=== PATIENT | male | born 1940 | race Caucasian/White ===

== ENCOUNTER 2017-07-23 04:36 | Observation (INO) | payer MEDICARE, SELFPAY ==
[2017-07-23] VITALS (13 sets, daily range): BP systolic 123–139; BP diastolic 66–94; PULSE 67–90; RESP 12–20; TEMP 36.8–37.1; O2SAT 91–97; BMI 29.8; BMI 30.9
--- NOTE | 2017-07-23 04:44 | HMH.EDGENADL ---
ED Disposition Clinical Impression: Angina pectoris Disposition: Xfer Short-Term Hosp Condition on Discharge: Good Referrals: Rober Horn [Primary Care Provider] - Forms: Transfer Record - ED - Critical Care Critical Care Time: No Attestation: On 07/23/17, the high probability of a clinically significant, sudden or life threatening deterioration of the following system(s) required my full and direct attention, intervention and personal management. The time I documented below is in addition to time spent performing reported procedures but includes the following listed in this critical care notation. Medical Decision Making - Noah Inquiry Pt receiving controlled substance: No Vital Signs: 07/23/17 04:37 07/23/17 05:06 07/23/17 05:30 Temperature 98.7 F Temperature Source Oral Pulse Rate [Right Radial] 79 71 75 Respiratory Rate 20 16 Blood Pressure [Right Arm] 129/91 126/71 139/86 Blood Pressure Mean [Right Arm] 103 89 103 Blood Pressure Source [Right Arm] Automatic Cuff Blood Pressure Position [Right Arm] Sitting Sitting 02 Sat by Pulse Oximetry 97 94 L 97 Oxygen Delivery Method 07/23/17 07:00 07/23/17 07:30 07/23/17 08:00 Temperature 98.2 F Temperature Source Oral Pulse Rate [Right Radial] 75 75 77 Respiratory Rate 18 Blood Pressure [Right Arm] 130/85 123/72 123/72 Blood Pressure Mean [Right Arm] 100 89 89 Blood Pressure Source [Right Arm] Automatic Cuff Automatic Cuff Automatic Cuff Blood Pressure Position [Right Arm] Supine 02 Sat by Pulse Oximetry 92 L 95 91 L Oxygen Delivery Method Room Air Room Air - Lab Data Lab Results 07/23/17 04:45: WBC 9.2, RBC 5.02, Hgb 15.6, Hct 47.2, MCV 93.9, MCH 31.2, MCHC 33.2, RDW 12.7, Plt Count 250, MPV 7.6, Neut % (Auto) 59.9, Lymph % (Auto) 27.4, [place] % (Auto) 10.4 H, Eos % (Auto) 1.7, Baso % (Auto) 0.7, Neut # (Auto) 5.5, Lymph # (Auto) 2.5, [place] # (Auto) 1.0, Eos # (Auto) 0.2, Baso # (Auto) 0.1 07/23/17 04:45: Sodium 141, Potassium 4.1, Chloride 102, Carbon Dioxide 30, Anion Gap 13.1, BUN 26 H, Creatinine 1.68 H, Estimated Creat Clear 53, Estimated GFR 40 L, Est GFR ( Amer) 48 L, Glucose 126 H, Calcium 8.7, Total Bilirubin 0.3, AST 36, ALT 36, Alkaline Phosphatase 64, Total Creatine Kinase 460 H, CK-MB (CK-2) 5.9 H, CK-MB (CK-2) Rel Index 1.3, Troponin I < 0.02, Total Protein 7.0, Albumin 3.7, Globulin 3.3 H, Albumin/Globulin Ratio 1.1 Result diagrams: 07/23/17 04:45 07/23/17 04:45 Orders (Tests/Meds): ED MEDICATIONS Discontinued Medications Generic Name Dose Route Start Last Admin Trade Name Freq PRN Reason Stop Dose Admin Aspirin 324 mg 07/23/17 06:56 07/23/17 06:57 Aspirin 81mg Chewable Tablet PO 07/23/17 06:57 324 mg ONCE ONE Administration Nitroglycerin 0.4 mg 07/23/17 05:28 07/23/17 05:31 Nitrostat 0.4mg Sl Tablet SL 07/23/17 05:29 0.4 mg ONCE ONE Administration ORDERS Category Date Time Status Chest XR 2 view (NOT portable) [XR chest 2V] Stat Exams 07/23/17 04:45 Taken Troponin I Q3H Lab 07/23/17 07:45 Received Troponin I Q3H Lab 07/23/17 10:30 Ordered Troponin I Q3H Lab 07/23/17 13:30 Ordered - Radiology Data #1 Image(s): Chest Image Reviewed: Yes I reviewed the patient's radiology image Preliminary Findings: Normal/NAD - ECG Data Tracing #1 EKG interpreted by Faisal Nieves MD: Rhythm: Atrial fibrillation Rate: 72 [place]: normal Ectopy: Unifocal PVCs versus aberrantly conducted beats Conduction: Incomplete right bundle branch block ST Segment Changes: Nonspecific T Wave Changes: Nonspecific Q Waves: none No evidence of acute ischemia or injury Prior electrocardiagrams reviewed. No change from prior tracings. Baseline artifact present, but I consider the EKG adequate for accurate interpretation. Medical Decision Narrative: The patient refused aspirin upon arrival because he is on Eliquis. 6:07 AM: Discussed disposition. I recom
--- NOTE | 2017-07-23 04:45 | XR_ITS ---
XR chest 2V COMPARISON: Portable upright chest 08/04/2016 HISTORY: Chest pain TECHNIQUE: PA and lateral chest FINDINGS: The lung cantrell are fairly well-expanded and appear clear of infiltrate. There is borderline cardio megaly without failure. There is no pleural fluid. The bony thorax appears normal. IMPRESSION: Borderline cardio megaly, no acute chest pathology noted
--- NOTE | 2017-07-23 04:47 | ED_ITS ---
ED Disposition Clinical Impression: Angina pectoris Disposition: Xfer Short-Term Hosp Condition on Discharge: Good Referrals: Rober Horn [Primary Care Provider] - Forms: Transfer Record - ED - Critical Care Critical Care Time: No Attestation: On 07/23/17, the high probability of a clinically significant, sudden or life threatening deterioration of the following system(s) required my full and direct attention, intervention and personal management. The time I documented below is in addition to time spent performing reported procedures but includes the following listed in this critical care notation. Medical Decision Making - Noah Inquiry Pt receiving controlled substance: No Vital Signs: 07/23/17 04:37 07/23/17 05:06 07/23/17 05:30 Temperature 98.7 F Temperature Source Oral Pulse Rate [Right Radial] 79 71 75 Respiratory Rate 20 16 Blood Pressure [Right Arm] 129/91 126/71 139/86 Blood Pressure Mean [Right Arm] 103 89 103 Blood Pressure Source [Right Arm] Automatic Cuff Blood Pressure Position [Right Arm] Sitting Sitting 02 Sat by Pulse Oximetry 97 94 L 97 Oxygen Delivery Method 07/23/17 07:00 07/23/17 07:30 07/23/17 08:00 Temperature 98.2 F Temperature Source Oral Pulse Rate [Right Radial] 75 75 77 Respiratory Rate 18 Blood Pressure [Right Arm] 130/85 123/72 123/72 Blood Pressure Mean [Right Arm] 100 89 89 Blood Pressure Source [Right Arm] Automatic Cuff Automatic Cuff Automatic Cuff Blood Pressure Position [Right Arm] Supine 02 Sat by Pulse Oximetry 92 L 95 91 L Oxygen Delivery Method Room Air Room Air - Lab Data Lab Results 07/23/17 04:45: WBC 9.2, RBC 5.02, Hgb 15.6, Hct 47.2, MCV 93.9, MCH 31.2, MCHC 33.2, RDW 12.7, Plt Count 250, MPV 7.6, Neut % (Auto) 59.9, Lymph % (Auto) 27.4 , [place] % (Auto) 10.4 H, Eos % (Auto) 1.7, Baso % (Auto) 0.7, Neut # (Auto) 5.5, Lymph # (Auto) 2.5, [place] # (Auto) 1.0, Eos # (Auto) 0.2, Baso # (Auto) 0.1 07/23/17 04:45: Sodium 141, Potassium 4.1, Chloride 102, Carbon Dioxide 30, Anion Gap 13.1, BUN 26 H, Creatinine 1.68 H, Estimated Creat Clear 53, Estimated GFR 40 L, Est GFR ( Amer) 48 L, Glucose 126 H, Calcium 8.7, Total Bilirubin 0.3, AST 36, ALT 36, Alkaline Phosphatase 64, Total Creatine Kinase 460 H, CK-MB (CK-2) 5.9 H, CK-MB (CK-2) Rel Index 1.3, Troponin I < 0.02 , Total Protein 7.0, Albumin 3.7, Globulin 3.3 H, Albumin/Globulin Ratio 1.1 Result diagrams: 07/23/17 04:45 07/23/17 04:45 Orders (Tests/Meds): ED MEDICATIONS Discontinued Medications Generic Name Dose Route Start Last Admin Trade Name Freq PRN Reason Stop Dose Admin Aspirin 324 mg 07/23/17 06:56 07/23/17 06:57 Aspirin 81mg Chewable Tablet PO 07/23/17 06:57 324 mg ONCE ONE Administration Nitroglycerin 0.4 mg 07/23/17 05:28 07/23/17 05:31 Nitrostat 0.4mg Sl Tablet SL 07/23/17 05:29 0.4 mg ONCE ONE Administration ORDERS Category Date Time Status Chest XR 2 view (NOT portable) [XR chest 2V] Stat Exams 07/23/17 04:45 Taken Troponin I Q3H Lab 07/23/17 07:45 Received Troponin I Q3H Lab 07/23/17 10:30 Ordered Troponin I Q3H Lab 07/23/17 13:30 Ordered - Radiology Data #1 Image(s): Chest Image Reviewed:
[2017-07-23 05:06] LABS: Basophils # 0.1 K/mm3 (0-0.2); Basophils % 0.7 % (0.1-2.0); Eosinophils # 0.2 K/mm3 (0.0-0.4); Eosinophils % 1.7 % (0.1-12.0); Hematocrit 47.2 % (42.0-52.0); Hemoglobin 15.6 g/dL (14.1-18.0); Lymphocytes # 2.5 K/mm3 (0.7-4.5); Lymphocytes % 27.4 K/mm3 (10-50); Mean Corpuscular HGB Conc 33.2 g/dL (31.8-35.4); Mean Corpuscular Hemoglobin 31.2 pg (27.0-31.2); Mean Corpuscular Volume 93.9 fl (80-94); Mean Platelet Volume 7.6 fl (7.4-10.4); Monocytes % 10.4 % (1.7-9.3); Neutrophils # 5.5 K/mm3 (1.8-7.8); Neutrophils % 59.9 % (37.0-80.0); Platelet Count 250 K/mm3 (142-424); Red Blood Count 5.02 M/mm3 (4.60-6.20); Red Cell Distribution Width 12.7 % (11.5-17.5); White Blood Count 9.2 K/mm3 (4.8-10.8)
[2017-07-23 05:25] LABS: Alanine Aminotransferase 36 U/L (12-78); Albumin Level 3.7 gm/dL (3.4-5.0); Albumin/Globulin Ratio 1.1 (1.1-1.8); Alkaline Phosphatase 64 U/L (46-116); Anion Gap 13.1 mEq/L (5-15); Aspartate Amino Transferase 36 U/L (15-37); Bilirubin,Total 0.3 mg/dL (0.2-1.0); Blood Urea Nitrogen 26 mg/dL (7-18); CKMB Relative Index 1.3 U/L (0-4.0); Calcium 8.7 mg/dL (8.5-10.1); Carbon Dioxide 30 mmol/L (21.0-32.0); Chloride 102 mmol/L (98-107); Creatine Kinase 460 U/L (39-308); Creatine Kinase MB 5.9 mg/ml (0.0-3.6); Creatinine Clearance Estimated 53 mL/min (0-300); Creatinine,Serum 1.68 mg/dL (0.70-1.30); Estimated Glomerular Filt Rate 40 ml/min (>60); GFR (African American) 48 ML/MIN (>60); Globulin 3.3 gm/dl (1.3-3.2); Glucose 126 mg/dL (74-106); Potassium 4.1 mmoL/L (3.5-5.1); Sodium 141 mmol/L (136-145); Troponin I < 0.02 ng/ml (0.00-0.06)
--- NOTE | 2017-07-23 05:29 | PC.NURSE ---
PT IS NOW C/O CHEST PAIN, 09/15. PT STATES THAT HE IS UNCOMFORTABLE. DR. ROSALES NOTIFIED AND NEW ORDERS RECEIVED. NITRO SL GIVEN. WILL MONITOR FOR IMPROVMENT.
--- NOTE | 2017-07-23 06:28 | PC.NURSE ---
DR SHAKIR GORDILLO HOSPITALIST FOR POSSIBLE CARDIAC TRANSFER TO [facility]. AWAITING RETURN CALL.
--- NOTE | 2017-07-23 06:54 | PC.NURSE ---
DR. BECKER ACCEPTING AT [facility] FOR CARDIAC EVAL AND ANGINA. PT 3RD IN LINE FOR BED PLACEMENT. AWAITING CALL FROM [facility] FOR BED PLACEMENT. PT AND FAMILY UPDATED.
[2017-07-23 08:11] LABS: Troponin I < 0.02 ng/ml (0.00-0.06)
--- NOTE | 2017-07-23 09:00 | PC.NURSE ---
Mimi from [facility] called stating they do not have a bed for pt at this time, stated there are 3 admissions in from of pt at this time. Stated she will call back with updates.
[2017-07-23 11:19] LABS: Troponin I < 0.02 ng/ml (0.00-0.06)
--- NOTE | 2017-07-23 12:49 | PC.NURSE ---
Contacted [facility] bed placement, spoke with Gilma who stated pt is on the waiting list with 1 other pt is in front of him. Stated they still have discharges that are still present in the facility that they are waiting to free up beds. Stated will contact us back to update on status.
[2017-07-23 14:28] LABS: Troponin I < 0.02 ng/ml (0.00-0.06)
--- NOTE | 2017-07-23 15:06 | PC.NURSE ---
attempted to contacted bed placement at [facility], no answer. Will continue to attempt to try to contact them
--- NOTE | 2017-07-23 15:24 | PC.NURSE ---
Spoke with Snehal at [facility] about an estimated time for pt to get a bed, she stated that she was unable to give me a time and that he was still on their list but didn't know when they would have a bed open for him.
--- NOTE | 2017-07-23 17:52 | PC.NURSE ---
INFORMED PATIENT THAT [facility] STILL IS AWAITING BED PLACEMENT.
--- NOTE | 2017-07-23 18:12 | PC.NURSE ---
IN TO SPEAK WITH PATIENT.
[2017-07-24] VITALS (11 sets, daily range): BP systolic 109–143; BP diastolic 51–92; PULSE 66–80; RESP 12–24; TEMP 36.3–36.7; O2SAT 89–99
--- NOTE | 2017-07-24 01:51 | PC.NURSE ---
PT IS A&OX3. HE DENIED CP UPON ADMISSION, BUT LATER REPORTED THAT HE FELT CHEST PAIN WHEN HE ROLLED OVER ONTO HIS LEFT SIDE. AFIB WITH OCCASSIONAL PVCS ON TELEMETRY. DENIES SOA WHILE AT REST. HE IS [place].
--- NOTE | 2017-07-24 08:25 | HMH.HP ---
*Admission Date: 07/23/17 *Chief complaint: recurring chest pain *History of present illness: 77-year-old male with history of coronary artery disease and atrial fibrillation presented to the emergency department early in the morning on July 23 with recurring episodes of left-sided chest pain described as a cramp across my chest . Initial onset of pain had been earlier that morning when the patient was in bed and turned and rolled over on his left side. He had immediate onset of chest pain. However altering his position afterward did not reduce any of the chest pain and he continued to have episodes lasting between 10 and 20 minutes until he presented to the emergency department. In the emergency department he continued to have episodes of chest discomfort and was given nitroglycerin. While chest pain decreased patient did not believe it was due to the nitroglycerin. 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 He did rule out for [place]. As the evening progressed patient's mind changed and he was admitted to our facility. Dr. Barrera was consulted. The patient tells me overnight he once again had an episode of chest pain when he turned to roll over onto his left side. Patient has a history of atrial fibrillation and has failed 2 cardioversions. He also had a cardiac catheterization approximately 5 years ago and was told he had evidence of a blocked coronary artery with good collateral circulation. Patient also reports a history of vasovagal syncope that occurs especially after procedures. He does state with his initial episode of chest pain on the morning of July 23 he became diaphoretic and nauseous. [facility] History Medical History: Reports:: Atrial Fibrillation, Coronary Artery Disease, Hyperlipidemia, Hypertension Denies:: Cancer, Diabetes Mellitus Type 1, Diabetes Mellitus Type 2, MRSA Other Medical History: Reports: Cataracts Other Surgeries: Yes: Cardiac Catheterization Amputation: No Fractures: No - *Social History Educational Level: Attended College Smoking Status: Never smoker Alcohol Intake: never Occupational Status: retired - Psychiatric History Expresses thoughts of harming self/others: None Suicide Plan Description: No Plan *Family Hx:: Cancer, Hypertension Review of Systems - Review of Systems Review of systems:: pertinent systems reviewed and negative unless documented below Meds Home Medications Medication Instructions Recorded Confirmed Type Apixaban [Eliquis] 5 mg PO BID 07/23/17 07/23/17 History Cetirizine HCl [Zyrtec] 10 mg PO DAILY 07/23/17 07/23/17 History Fluticasone Propionate 9.9 ml NS DAILY 07/23/17 07/23/17 History Lisinopril [Lisinopril 20mg Tab] 20 mg PO DAILY 07/23/17 07/23/17 History Simvastatin [Simvastatin] 40 mg PO DAILY 07/23/17 07/23/17 History Triamcinolone Acetonide [Kenalog 0 gm TOPICAL DAILY 07/23/17 07/23/17 History 0.1% cream 30gm tube] hydroCHLOROthiazide [HCTZ 12.5mg 12.5 mg PO DAILY 07/23/17 07/23/17 History cap] Allergies Allergy/AdvReac Type Severity Reaction Status Date / Time No Known Allergies Allergy Unverified 04/26/17 15:05 Exam Vital signs and Labs for Last 24 Hours: Temp Pulse Resp BP Pulse Ox 97.9 F 75 18 130/73 96 07/24/17 07:54 07/24/17 07:54 07/24/17 07:54 07/24/17 07:54 07/24/17 07:54 Laboratory Results - last 24 hr 07/23/17 07:45: Troponin I < 0.02 07/23/17 10:48: Troponin I < 0.02 07/23/17 13:53: Troponin I < 0.02 I & O for Last 24 hours: Intake & Output 07/21/17 07/22/17 07/23/17 07/24/17 11:59 11:59 11:59 11:59 Intake Total 340 / 340 Balance 340 / 340 Narrative: Patient is awake and alert this morning and in no distress. Pupils are reactive to light. Oropharynx is moist. Neck is without carotid bruits or jugular venous distention. Heart is irregularly irregular. Khadijah
--- NOTE | 2017-07-24 08:28 | P.HP_ITS ---
*Admission Date: 07/23/17 *Chief complaint: recurring chest pain *History of present illness: 77-year-old male with history of coronary artery disease and atrial fibrillation presented to the emergency department early in the morning on July 23 with recurring episodes of left-sided chest pain described as a cramp across my chest . Initial onset of pain had been earlier that morning when the patient was in bed and turned and rolled over on his left side. He had immediate onset of chest pain. However altering his position afterward did not reduce any of the chest pain and he continued to have episodes lasting between 10 and 20 minutes until he presented to the emergency department. In the emergency department he continued to have episodes of chest discomfort and was given nitroglycerin. While chest pain decreased patient did not believe it was due to the nitroglycerin. 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 He did rule out for [place]. As the evening progressed patient's mind changed and he was admitted to our facility. Dr. Barrera was consulted. The patient tells me overnight he once again had an episode of chest pain when he turned to roll over onto his left side. Patient has a history of atrial fibrillation and has failed 2 cardioversions. He also had a cardiac catheterization approximately 5 years ago and was told he had evidence of a blocked coronary artery with good collateral circulation. Patient also reports a history of vasovagal syncope that occurs especially after procedures. He does state with his initial episode of chest pain on the morning of July 23 he became diaphoretic and nauseous. [facility] History Medical History: Reports:: Atrial Fibrillation, Coronary Artery Disease, Hyperlipidemia, Hypertension Denies:: Cancer, Diabetes Mellitus Type 1, Diabetes Mellitus Type 2, MRSA Other Medical History: Reports: Cataracts Other Surgeries: Yes: Cardiac Catheterization Amputation: No Fractures: No - *Social History Educational Level: Attended College Smoking Status: Never smoker Alcohol Intake: never Occupational Status: retired - Psychiatric History Expresses thoughts of harming self/others: None Suicide Plan Description: No Plan *Family Hx:: Cancer, Hypertension Review of Systems - Review of Systems Review of systems:: pertinent systems reviewed and negative unless documented below Meds Home Medications Medication Instructions Recorded Confirmed Type Apixaban [Eliquis] 5 mg PO BID 07/23/17 07/23/17 History Cetirizine HCl [Zyrtec] 10 mg PO DAILY 07/23/17 07/23/17 History Fluticasone Propionate 9.9 ml NS DAILY 07/23/17 07/23/17 History Lisinopril [Lisinopril 20mg Tab] 20 mg PO DAILY 07/23/17 07/23/17 History Simvastatin [Simvastatin] 40 mg PO DAILY 07/23/17 07/23/17 History Triamcinolone Acetonide [Kenalog 0 gm TOPICAL DAILY 07/23/17 07/23/17 History 0.1% cream 30gm tube] hydroCHLOROthiazide [HCTZ 12.5mg 12.5 mg PO DAILY 07/23/17 07/23/17 History cap] Allergies Allergy/AdvReac Type Severity Reaction Status Date / Time No Known Allergies Allergy Unverified 04/26/17 15:05 Exam Vital signs and Labs for Last 24 Hours: Temp Pulse Resp BP Pulse Ox 97.9 F 75 18 130/73 96 07/24/17 07:54 07/24/17 07:54 07/24/17 07:54 07/24/17 07:54 07/24/17 07:54 Laboratory Results - last 24 hr 07/23/17 07:45: Troponin I <
--- NOTE | 2017-07-24 10:02 | P.CONPHA_ITS ---
[facility] Pharmacy VTE Monitoring - Patient Demographics Admission date: 07/24/17 Report Date: 07/24/17 Time: 10:02 Allergies/Adverse Reactions: Patient Allergies No Known Allergies Allergy (Unverified 04/26/17 15:05) Height: 1.83 m Weight: 103.419 kg Patient Problems: Current Active Problems Angina pectoris (Acute) Atrial fibrillation, chronic (Acute) Coronary artery disease (Acute) - VTE Risk Labs: VTE Related Lab Results Hgb 15.6 g/dL (14.1-18.0) 07/23/17 04:45 Hct 47.2 % (42.0-52.0) 07/23/17 04:45 Plt Count 250 K/mm3 (142-424) 07/23/17 04:45 BUN 26 mg/dL (7-18) H 07/23/17 04:45 Creatinine 1.68 mg/dL (0.70-1.30) H 07/23/17 04:45 Estimated Creat Clear 53 mL/min (0-300) 07/23/17 04:45 Was VTE Risk Assessment Performed: Yes VTE Score: 3 VTE Risk Level: Low Risk - VTE Diagnosis Confirmed Comment: LUBNA RAMOS
--- NOTE | 2017-07-24 11:06 | PC.NURSE ---
Addendum entered by Melissa Rod RN 07/24/17 11:09: CALLED DR. HAQUE. Original Note: called md at this time to verify that he was coming in today to see patient. md stated he did plan on it and to go ahead and give patient a lunch tray and he would be down some time after lunch.
--- NOTE | 2017-07-24 18:01 | PC.NURSE ---
DR HAQUE ROUNDED ON PATIENT AT 1435 FOR ORDERED CONSULT. AFTER SPEAKING WITH PATIENT MD ORDERED FOR AN ECHO ORDER AND A CATH ORDER ON THE PATIENT FOR IN THE MORNING AND THAT HE PLANNED ON CATHING HIM SOON POSSIBLE IN THE MORNING. PLACED ORDERS IN COMPUTER FOR ECHO LIMITED THAT WAS IN ERROR, SO STOPPED THIS AND CHANGED IT TO AN ECHO DOPPLER COMPLETE.
--- NOTE | 2017-07-24 18:16 | PC.NURSE ---
PATIENT HAS HAD A GOOD DAY THIS SHIFT. REMAINS ON HEART MONITOR AND IS NOTED TO BE IN AFIB MAJORITY OF THE TIME WITH FREQUENT PVCS. SOME STRIPS NOTED WERE AFLUTTER. HE HAS HAD NO COMPLAINTS. PATIENT SIGNED CONSENT FOR HEART CATH THIS SHIFT. HIS VSS WILL CONTINUE TO MONITOR.
[2017-07-25] VITALS (21 sets, daily range): BP systolic 113–146; BP diastolic 58–89; PULSE 54–75; RESP 16–20; TEMP 36.6–37; O2SAT 90–100
--- NOTE | 2017-07-25 | IR_ITS ---
CARDIAC CATHETERIZATION DATE OF CATHETERIZATION:07/25/2017 9:13 AM PROCEDURES: 1. Left heart catheterization 2. Left ventriculogram 3. Selective coronary angiogram 4. Drug-eluting stent deployment to the mid left anterior descending artery INDICATION FOR TEST: 1. Unstable angina 2. Coronary artery disease 3. Chronically occluded right coronary artery being fed by the left anterior descending artery via left to right collaterals Informed consent was obtained prior to the procedure. COMPLICATIONS: None ESTIMATED BLOOD LOSS: Less than 10 ml. TECHNIQUE: One percent lidocaine used to anesthetize the right anterior aspect of the wrist. The right radial artery was accessed via the Seldinger technique. A 6 Danish sheath was placed in the right radial artery. 2.5 mg of verapamil, 800 mcg of nitroglycerin was administered via the sheath. Patient had a 360 degree corkscrew brachiocephalic artery therefore the radial access was abandoned and 1% lidocaine used to anesthetize the right groin. Right femoral artery was accessed via the Seldinger technique and a 4 Danish sheath was placed in the right femoral artery. A JL 4 JR4 catheter were used for the diagnostic procedure. At the end of the diagnostic procedure 10,000 units of heparin was administered intravenously producing an ACT of 288 seconds. An additional 2000 units of heparin was administered intravenously. The 4 Danish sheath was exchanged for a 6 Danish sheath and an EBU 0.75 guide catheter was used intubate the left main artery. A BMW wire was placed distally into the LAD and a 3 mm x 26 mm resolute Erik stent was deployed at 18 manju reducing the focal severe stenosis to 0%. KARL-3 flow was present before and after the procedure. After achieving excellent angiographic results the apparatus was removed the groin is reprepped closure changed sheath was removed good hemostasis was achieved using Perclose device patient transferred to the postop holding area in stable condition. The radial sheath was also removed after the femoral arterial sheath was removed ANGIOGRAPHIC RESULTS: 1. The left main artery normal 2. The left anterior descending artery has proximal 10-20% stenoses with a focal concentric 80-90% mid vessel stenosis. The LAD supplies collaterals to the distal right coronary artery 3. The circumflex artery is a nondominant yet still large vessel with mild 10% luminal irregularities. A portion of this vessel also collateralizes the distal right coronary artery 4. The right coronary artery is a dominant vessel and occluded at mid vessel. The distal segment fills primarily via left to right collaterals 5. The RASMUSSEN ventriculogram reveals normal 65% 6. The left ventricular end-diastolic pressure 10 mmHg IMPRESSION: 1. Severe 2 vessel coronary artery disease as described above 2. Severe disease in the LAD which collateralizes the distal dominant right coronary artery with successful stenting of the mid LAD severe disease reduced to 0% with 1 drug-eluting stent 3. Normal ejection fraction 4. Normal left ventricular end-diastolic pressure PLAN: 1. Brilinta 90 mg twice a day plus aspirin 81 mg a day for at least 6 months 2. Patient should be started and continued on Eliquis for his atrial fibrillation. 3. LDL less than 55 4. High intensity statin therapy 5. Cardiac rehabilitation 6. Avoidance of any tobacco products
--- NOTE | 2017-07-25 02:52 | PC.NURSE ---
PT IS A&OX3. HE IS CURRENTLY NPO FOR HEART CATH IN . DENIES SOA. DENIES PAIN.
[2017-07-25 05:24] LABS: Basophils % 0.5 % (0.1-2.0); Eosinophils # 0.3 K/mm3 (0.0-0.4); Eosinophils % 4.1 % (0.1-12.0); Hematocrit 47.4 % (42.0-52.0); Hemoglobin 15.4 g/dL (14.1-18.0); Lymphocytes % 27.4 K/mm3 (10-50); Mean Corpuscular HGB Conc 32.6 g/dL (31.8-35.4); Mean Corpuscular Hemoglobin 30.6 pg (27.0-31.2); Mean Platelet Volume 7.6 fl (7.4-10.4); Monocytes # 0.6 K/mm3 (0.1-1.0); Monocytes % 8.2 % (1.7-9.3); Neutrophils # 4.5 K/mm3 (1.8-7.8); Neutrophils % 59.7 % (37.0-80.0); Platelet Count 255 K/mm3 (142-424); Red Blood Count 5.04 M/mm3 (4.60-6.20); Red Cell Distribution Width 12.5 % (11.5-17.5); White Blood Count 7.5 K/mm3 (4.8-10.8)
[2017-07-25 05:43] LABS: Anion Gap 7.9 mEq/L (5-15); Blood Urea Nitrogen 19 mg/dL (7-18); Carbon Dioxide 33 mmol/L (21.0-32.0); Chloride 105 mmol/L (98-107); Creatinine Clearance Estimated 71 mL/min (0-300); Creatinine,Serum 1.29 mg/dL (0.70-1.30); Estimated Glomerular Filt Rate 54 ml/min (>60); GFR (African American) 66 ML/MIN (>60); Glucose 99 mg/dL (74-106); Potassium 3.9 mmoL/L (3.5-5.1); Sodium 142 mmol/L (136-145)
--- NOTE | 2017-07-25 08:41 | HMH.CNCARD ---
History of Present Illness Consult date: 07/24/17 Requesting physician: Urbano Fischer Consult reason: chest pain Chief complaint: chest pain Additional Medical History:: 1. Coronary artery disease A. History of cardiac cath, 2010, chronic RCA occlusion. 2. History of vasovagal syncope, recurrent A. Frequent PVCs 3. History of atrial fibrillation for which she is on Eliquis therapy 4. Hypertension 5. Hyperlipidemia History of present illness: 77-year-old male with history of coronary artery disease and atrial fibrillation presented to the emergency department early in the morning on July 23 with recurring episodes of left-sided chest pain described as a cramp across my chest . Initial onset of pain had been earlier that morning when the patient was in bed and turned and rolled over on his left side. He had immediate onset of chest pain. However altering his position afterward did not reduce any of the chest pain and he continued to have episodes lasting between 10 and 20 minutes until he presented to the emergency department. In the emergency department he continued to have episodes of chest discomfort and was given nitroglycerin. While chest pain decreased patient did not believe it was due to the nitroglycerin. Initially the patient requested transfer to [facility] where his general i farmworker was but due to bed availability the patient remained in the ER most of the day. He did rule out for HI. As the evening progressed patient's mind changed and he was admitted to our facility. Dr. Barrera was consulted. The patient tells me overnight he once again had an episode of chest pain when he turned to roll over onto his left side. Patient has a history of atrial fibrillation and has failed 2 cardioversions. He also had a cardiac catheterization approximately 5 years ago and was told he had evidence of a blocked coronary artery with good collateral circulation. Patient also reports a history of vasovagal syncope that occurs especially after procedures. He does state with his initial episode of chest pain on the morning of July 23 he became diaphoretic and nauseous. The above per Dr. Fischer. [facility] History Medical History: Reports:: Atrial Fibrillation, Coronary Artery Disease, Hyperlipidemia, Hypertension Denies:: Cancer, Diabetes Mellitus Type 1, Diabetes Mellitus Type 2, MRSA Other Medical History: Reports: Cataracts Other Surgeries: Yes: Cardiac Catheterization Amputation: No Fractures: No - *Social History Educational Level: Attended College Smoking Status: Never smoker Alcohol Intake: never Occupational Status: retired - Psychiatric History Expresses thoughts of harming self/others: None Suicide Plan Description: No Plan *Family Hx:: Cancer, Hypertension Meds Home Medications Medication Instructions Recorded Confirmed Type Apixaban [Eliquis] 5 mg PO BID 07/23/17 07/23/17 History Cetirizine HCl [Zyrtec] 10 mg PO DAILY 07/23/17 07/23/17 History Fluticasone Propionate 9.9 ml NS DAILY 07/23/17 07/23/17 History Lisinopril [Lisinopril 20mg Tab] 20 mg PO DAILY 07/23/17 07/23/17 History Simvastatin [Simvastatin] 40 mg PO DAILY 07/23/17 07/23/17 History Triamcinolone Acetonide [Kenalog 0 gm TOPICAL DAILY 07/23/17 07/23/17 History 0.1% cream 30gm tube] Triamterene/Hydrochlorothiazid 1 each PO DAILY 07/24/17 07/24/17 History [Maxzide 37.5 mg-25 mg Tablet] Allergies Allergy/AdvReac Type Severity Reaction Status Date / Time No Known Allergies Allergy Unverified 04/26/17 15:05 Review of Systems - *Cardiovascular Reports chest pain - *Respiratory Reports shortness of breath - *Gastrointestinal Denies abdominal pain - *Genitourinary Denies difficulty urinating - *Musculoskeletal Reports joint pain - *Neurologic Reports dizziness Exam Vital signs and Labs for Last 24 Hours: Temp Pulse Resp BP Pulse Ox 97.9 F 69 20 145/78 95 07/25/17 07:35 07/25/17 07:35 07/25/17 0
--- NOTE | 2017-07-25 08:44 | P.CONS_ITS ---
History of Present Illness Consult date: 07/24/17 Requesting physician: Urbano Fischer Consult reason: chest pain Chief complaint: chest pain Additional Medical History:: 1. Coronary artery disease A. History of cardiac cath, 2010, chronic RCA occlusion. 2. History of vasovagal syncope, recurrent A. Frequent PVCs 3. History of atrial fibrillation for which she is on Eliquis therapy 4. Hypertension 5. Hyperlipidemia History of present illness: 77-year-old male with history of coronary artery disease and atrial fibrillation presented to the emergency department early in the morning on July 23 with recurring episodes of left-sided chest pain described as a cramp across my chest . Initial onset of pain had been earlier that morning when the patient was in bed and turned and rolled over on his left side. He had immediate onset of chest pain. However altering his position afterward did not reduce any of the chest pain and he continued to have episodes lasting between 10 and 20 minutes until he presented to the emergency department. In the emergency department he continued to have episodes of chest discomfort and was given nitroglycerin. While chest pain decreased patient did not believe it was due to the nitroglycerin. Initially the patient requested transfer to [facility] where his office messenger helper was but due to bed availability the patient remained in the ER most of the day. He did rule out for AL. As the evening progressed patient's mind changed and he was admitted to our facility. Dr. Barrera was consulted. The patient tells me overnight he once again had an episode of chest pain when he turned to roll over onto his left side. Patient has a history of atrial fibrillation and has failed 2 cardioversions. He also had a cardiac catheterization approximately 5 years ago and was told he had evidence of a blocked coronary artery with good collateral circulation. Patient also reports a history of vasovagal syncope that occurs especially after procedures. He does state with his initial episode of chest pain on the morning of July 23 he became diaphoretic and nauseous. The above per Dr. Fischer. [facility] History Medical History: Reports:: Atrial Fibrillation, Coronary Artery Disease, Hyperlipidemia, Hypertension Denies:: Cancer, Diabetes Mellitus Type 1, Diabetes Mellitus Type 2, MRSA Other Medical History: Reports: Cataracts Other Surgeries: Yes: Cardiac Catheterization Amputation: No Fractures: No - *Social History Educational Level: Attended College Smoking Status: Never smoker Alcohol Intake: never Occupational Status: retired - Psychiatric History Expresses thoughts of harming self/others: None Suicide Plan Description: No Plan *Family Hx:: Cancer, Hypertension Meds Home Medications Medication Instructions Recorded Confirmed Type Apixaban [Eliquis] 5 mg PO BID 07/23/17 07/23/17 History Cetirizine HCl [Zyrtec] 10 mg PO DAILY 07/23/17 07/23/17 History Fluticasone Propionate 9.9 ml NS DAILY 07/23/17 07/23/17 History Lisinopril [Lisinopril 20mg Tab] 20 mg PO DAILY 07/23/17 07/23/17 History Simvastatin [Simvastatin] 40 mg PO DAILY 07/23/17 07/23/17 History Triamcinolone Acetonide [Kenalog 0 gm TOPICAL DAILY 07/23/17 07/23/17 History 0.1% cream 30gm tube] Triamterene/Hydrochlorothiazid 1 each PO DAILY 07/24/17 07/24/17 History [Maxzide 37.5 mg-25 mg Tablet] Allergies Allergy/AdvReac Type Severity Reaction Status Date / Time No Known Allergies Allergy Unverified 04/26/17 15:05 Angelita
[2017-07-25 10:20] LABS: CATHL Activated Clotting Time 378 SEC (74-125)
[2017-07-25 10:21] LABS: CATHL Activated Clotting Time 288 SEC (74-125)
--- NOTE | 2017-07-25 11:42 | PC.NURSE ---
Patient just got back from cathlab, patient not aloud to ambulate until after 12
--- NOTE | 2017-07-25 16:19 | CA_ITS ---
PROCEDURE: 2-D M-mode and color Doppler study INDICATIONS FOR THE TEST: Chest pain+ COPD Heart Murmur Tobacco Smoking Palpitations Fatigue Syncope Edema Hypertension+Diabetes Mellitus Rheumatic Fever SOB MELÉNDEZ Obesity Hyperlipidemia+ Family History HD Additional History PATIENT INFORMATION HEIGHT: 73 WEIGHT:228 GENDER: Male B/P:130/73 2-D/M-MODE INTERPRETATION: 2-D MEASUREMENTS OBSERVED VALUES IN CMS Right Ventricular Dimension (RVDd) 2.1 Interventricular Septum (Thickness)(IVsd) 1.3 Left Ventricular Internal Dimensions(LVIDd) 4.4 Left Ventricular Posterior Wall (Thickness)(LVPWd) 1.1 Aortic Root Aortic Cusp Separation Left Atrial Dimensions (LAD) 2D 1. Technically difficult study because of the patient's factor and poor acoustic windows 2. The left atrium is moderately enlarged, left ventricle is normal size, mild concentric left ventricular hypertrophy, visually estimated ejection fraction approximately 50% with no obvious regional wall motion abnormality, endocardial subsequent poorly visualized. 3. The right atrium is moderately enlarged, right ventricle is mildly enlarged with normal contractility. 4. The aortic valve is thickened and calcified leaflet continue to display mobility. 5. The mitral valve leaflets are minimally thickened. 6. The pulmonic valve is poorly visualized 7. The tricuspid valve leaflets are minimally thickened. 8. No significant pericardial effusion noted. DOPPLER INTERROGATION: Doppler interrogation of the aortic, mitral and tricuspid valvular presence of mild mitral and moderate tricuspid regurgitation, likely right ventricular systolic pressure is 42 mmHg consistent with the moderate pulmonary hypertension, diastolic parameters are inconclusive. CONCLUSION: 1. Technically difficult study because of the patient's factor and poor acoustic windows 2. Moderate biatrial enlargement, normal left ventricular size, mild concentric left ventricular hypertrophy, visually estimated ejection fraction 50% with no obvious regional wall motion abnormality, diastolic parameters are inconclusive. 3. Mild mitral and moderate tricuspid regurgitation, calculated right ventricular systolic pressure is 42 mmHg consistent with moderate pulmonary hypertension 4. No significant pericardial effusion noted.
--- NOTE | 2017-07-25 16:25 | HMH.DCSUM ---
General - General Admission date: 07/23/17 Discharge date: 07/25/17 HPI HPI: 77-year-old male with history of coronary artery disease and atrial fibrillation presented to the emergency department early in the morning on July 23 with recurring episodes of left-sided chest pain described as a cramp across my chest . Initial onset of pain had been earlier that morning when the patient was in bed and turned and rolled over on his left side. He had immediate onset of chest pain. However altering his position afterward did not reduce any of the chest pain and he continued to have episodes lasting between 10 and 20 minutes until he presented to the emergency department. In the emergency department he continued to have episodes of chest discomfort and was given nitroglycerin. While chest pain decreased patient did not believe it was due to the nitroglycerin. Initially the patient requested transfer to [facility] where his cell biology scientist was but due to bed availability the patient remained in the ER most of the day. He did rule out for CT. As the evening progressed patient's mind changed and he was admitted to our facility. Dr. Barrera was consulted. The patient tells me overnight he once again had an episode of chest pain when he turned to roll over onto his left side. Patient has a history of atrial fibrillation and has failed 2 cardioversions. He also had a cardiac catheterization approximately 5 years ago and was told he had evidence of a blocked coronary artery with good collateral circulation. Patient also reports a history of vasovagal syncope that occurs especially after procedures. He does state with his initial episode of chest pain on the morning of July 23 he became diaphoretic and nauseous. Hospital Course Hospital Course: Patient was seen by Cardiology after ruling out for CT. Patient underwent LHC on 07/25/17 with results and recommendations as follows: ANGIOGRAPHIC RESULTS: 1. The left main artery normal 2. The left anterior descending artery has proximal 10-20% stenoses with a focal concentric 80-90% mid vessel stenosis. The LAD supplies collaterals to the distal right coronary artery 3. The circumflex artery is a nondominant yet still large vessel with mild 10% luminal irregularities. A portion of this vessel also collateralizes the distal right coronary artery 4. The right coronary artery is a dominant vessel and occluded at mid vessel. The distal segment fills primarily via left to right collaterals 5. The RASMUSSEN ventriculogram reveals normal 65% 6. The left ventricular end-diastolic pressure 10 mmHg IMPRESSION: 1. Severe 2 vessel coronary artery disease as described above 2. Severe disease in the LAD which collateralizes the distal dominant right coronary artery with successful stenting of the mid LAD severe disease reduced to 0% with 1 drug-eluting stent 3. Normal ejection fraction 4. Normal left ventricular end-diastolic pressure PLAN: 1. Brilinta 90 mg twice a day plus aspirin 81 mg a day for at least 6 months 2. Patient should be started and continued on Eliquis for his atrial fibrillation. 3. LDL less than 55 4. High intensity statin therapy Patient was discharged on 07/25/17 Objective Vital signs: Temp Pulse Resp BP Pulse Ox 97.9 F 68 20 117/65 97 07/25/17 07:35 07/25/17 14:25 07/25/17 14:25 07/25/17 14:25 07/25/17 14:25 Results Labs on day of discharge: Labs from last 24 hours 07/25/17 07/25/17 07/25/17 09:56 09:49 04:55 WBC RBC Hgb Hct MCV MCH MCHC RDW Plt Count MPV Neut % (Auto) Lymph % (Auto) Island % (Auto) Eos % (Auto) Baso % (Auto) Neut # (Auto) Lymph # (Auto) Island # (Auto) Eos # (Auto) Baso # (Auto) Activated Clotting Time 378 H* D 288 H* Sodium 142 Potassium 3.9 Chloride 105 Carbon Dioxide 33 H Anion Gap 7.9 BUN 19 H D Creatinine
--- NOTE | 2017-07-25 16:30 | P.DS_ITS ---
General - General Admission date: 07/23/17 Discharge date: 07/25/17 HPI HPI: 77-year-old male with history of coronary artery disease and atrial fibrillation presented to the emergency department early in the morning on July 23 with recurring episodes of left-sided chest pain described as a cramp across my chest . Initial onset of pain had been earlier that morning when the patient was in bed and turned and rolled over on his left side. He had immediate onset of chest pain. However altering his position afterward did not reduce any of the chest pain and he continued to have episodes lasting between 10 and 20 minutes until he presented to the emergency department. In the emergency department he continued to have episodes of chest discomfort and was given nitroglycerin. While chest pain decreased patient did not believe it was due to the nitroglycerin. Initially the patient requested transfer to [facility] where his data management engineer was but due to bed availability the patient remained in the ER most of the day. He did rule out for OH. As the evening progressed patient's mind changed and he was admitted to our facility. Dr. Barrera was consulted. The patient tells me overnight he once again had an episode of chest pain when he turned to roll over onto his left side. Patient has a history of atrial fibrillation and has failed 2 cardioversions. He also had a cardiac catheterization approximately 5 years ago and was told he had evidence of a blocked coronary artery with good collateral circulation. Patient also reports a history of vasovagal syncope that occurs especially after procedures. He does state with his initial episode of chest pain on the morning of July 23 he became diaphoretic and nauseous. Hospital Course Hospital Course: Patient was seen by Cardiology after ruling out for OH. Patient underwent LHC on 07/25/17 with results and recommendations as follows: ANGIOGRAPHIC RESULTS: 1. The left main artery normal 2. The left anterior descending artery has proximal 10-20% stenoses with a focal concentric 80-90% mid vessel stenosis. The LAD supplies collaterals to the distal right coronary artery 3. The circumflex artery is a nondominant yet still large vessel with mild 10% luminal irregularities. A portion of this vessel also collateralizes the distal right coronary artery 4. The right coronary artery is a dominant vessel and occluded at mid vessel. The distal segment fills primarily via left to right collaterals 5. The RASMUSSEN ventriculogram reveals normal 65% 6. The left ventricular end-diastolic pressure 10 mmHg IMPRESSION: 1. Severe 2 vessel coronary artery disease as described above 2. Severe disease in the LAD which collateralizes the distal dominant right coronary artery with successful stenting of the mid LAD severe disease reduced to 0% with 1 drug-eluting stent 3. Normal ejection fraction 4. Normal left ventricular end-diastolic pressure PLAN: 1. Brilinta 90 mg twice a day plus aspirin 81 mg a day for at least 6 months 2. Patient should be started and continued on Eliquis for his atrial fibrillation. 3. LDL less than 55 4. High intensity statin therapy Patient was discharged on 07/25/17 Objective Vital signs: Temp Pulse Resp BP Pulse Ox 97.9 F 68 20 117/65 97 07/25/17 07:35 07/25/17 14:25 07/25/17 14:25 07/25/17 14:25 07/25/17 14:25 Results Labs on day of discharge: Labs from last 24 hours 07/25/17 07/25/17 07/25/17 09:56 09:49 04:55 WBC
--- NOTE | 2017-07-25 17:16 | PC.NURSE ---
LATE ENTRY: UPON ARRIVAL TO FLOOR PT HAD TRACELET IN PLACE TO THE RIGHT RADIAL WITH 11 MLS OF AIR. PT ALSO NOTED TO HAVE A R GROIN SITE THAT WAS PERCLOSED. R GROIN SITE SOFT AND NONTENDER WITH NO S/SX OF HEMATOMA. DRESSING CDI. 1200 2 MLS OF AIR REMOVED FROM TRACELELT, NO BLEEDING NOTED 1215 2 MLS OF AIR REMOVED FROM TRACELET, NO BLEEDING NOTED 1230 2 MLS OF AIR REMOVED FROM TRACELET, NO BLEEDING NOTED 1245 2 MLS OF AIR REMOVED FROM TRACELET, NO BLEEDING NOTED 1300 2 MLS OF AIR REMOVED FROM TRACELET, NO BLEEDING NOTED 1315 REMAINING AIR REMOVED FROM TRACELET, NO BLEEDING NOTED. 1330 TRACELET REMOVED AND R RADIAL SITE CLEANSED WITH CLORAPREP AND DRESSED WITH 4X4 AND TEGADERM. EDUCATED PT ABOUT NOT USING R HAND R/T CATH SITE. DURING REMOVAL OF AIR, GROIN SITE REMAINED SOFT AND NONTENDER WITH NO S/SX OF HEMATOMA OR BLEEDING. PT HAS NO CO/QUESTIONS AT THIS TIME. WILL CONTINUE TO MONITOR. CALL LIGHT WITHIN REACH. ALL VSS.
== END 2017-07-25 18:10 | disposition home or self-care (01) ==
LOC: ER 07:17 → ICU 19:54
PROVIDERS: Internal Medicine; Admitting Provider Family Medicine; Emergency Provider Emergency Medicine; Family Provider Internal Medicine; PCP Internal Medicine; Visit Provider Family Medicine
DX: I25.110 Atherosclerotic heart disease of native coronary artery with unstable angina pectoris (principal); I48.2 Chronic atrial fibrillation; I10 Essential (primary) hypertension; E78.5 Hyperlipidemia, unspecified; I25.82 Chronic total occlusion of coronary artery
CPT/HCPCS: 36415; 71046; 80048; 80053; 82550; 82553; 84484; 85025; 85347; 92928; 93005; 93306; 93458; 96374; 99152; 99153; 99211; 99285; C1725; C1760; C1769; C1876; C1894; C9600; G0378; J1644; Q9967

== ENCOUNTER → 2017-12-21 11:10 | Outpatient (REF) | payer MEDICARE, SELFPAY ==
[2017-12-21 11:48] LABS: Alanine Aminotransferase 29 U/L (12-78); Albumin Level 3.6 gm/dL (3.4-5.0); Albumin/Globulin Ratio 1.4 (1.1-1.8); Alkaline Phosphatase 54 U/L (46-116); Anion Gap 11.4 mEq/L (5-15); Aspartate Amino Transferase 19 U/L (15-37); Bilirubin,Total 0.8 mg/dL (0.2-1.0); Blood Urea Nitrogen 26 mg/dL (7-18); Calcium 8.7 mg/dL (8.5-10.1); Carbon Dioxide 30 mmol/L (21.0-32.0); Chloride 105 mmol/L (98-107); Chol/HDL Ratio 3.5 (1-3.5); Cholesterol 98 mg/dL (140-200); Estimated Glomerular Filt Rate 39 ml/min (>60); GFR (African American) 48 ML/MIN (>60); Globulin 2.6 gm/dl (1.3-3.2); Glucose 81 mg/dL (74-106); HDL Cholesterol 28 mg/dL (27-67); LDL Cholesterol 60 mg/dL (0-130); Potassium 4.4 mmoL/L (3.5-5.1); Sodium 142 mmol/L (136-145); Total Protein,Serum 6.2 gm/dL (6.4-8.2); Triglycerides 52 mg/dL (30-200); VLDL Cholesterol 10 mg/dL (0-40)
== END ==
LOC: LAB 11:10
PROVIDERS: Visit Provider Internal Medicine
DX: I10 Essential (primary) hypertension (principal); I25.10 Atherosclerotic heart disease of native coronary artery without angina pectoris; E78.5 Hyperlipidemia, unspecified; G47.33 Obstructive sleep apnea (adult) (pediatric)
CPT/HCPCS: 80053; 80061

== ENCOUNTER 2019-06-06 20:01 | Observation (INO) ==
[2019-06-06 20:30] LABS: Basophils % 0.3 % (0.1-2.0); Eosinophils # 0.2 K/mm3 (0.0-0.4); Eosinophils % 1.5 % (0.1-12.0); Hematocrit 49.7 % (42.0-52.0); Hemoglobin 16.2 g/dL (14.1-18.0); Lymphocytes % 9.7 % (10-50); Mean Corpuscular HGB Conc 32.6 g/dL (31.8-35.4); Mean Corpuscular Volume 95.3 fl (80-94); Mean Platelet Volume 7.9 fl (7.4-10.4); Monocytes # 0.6 K/mm3 (0.1-1.0); Monocytes % 5.7 % (1.7-9.3); Neutrophils # 8.9 K/mm3 (1.8-7.8); Neutrophils % 82.8 % (37.0-80.0); Platelet Count 327 K/mm3 (142-424); Red Blood Count 5.22 M/mm3 (4.60-6.20); Red Cell Distribution Width 12.6 % (11.5-17.5); White Blood Count 10.7 K/mm3 (4.8-10.8)
[2019-06-06 20:44] LABS: Alanine Aminotransferase 32 U/L (12-78); Albumin Level 3.8 gm/dL (3.4-5.0); Albumin/Globulin Ratio 1.1 (1.1-1.8); Alkaline Phosphatase 69 U/L (46-116); Amylase 98 U/L (25-115); Aspartate Amino Transferase 29 U/L (15-37); Bilirubin,Total 0.9 mg/dL (0.2-1.0); Blood Urea Nitrogen 25 mg/dL (7-18); C-Reactive Protein 0.2 mg/dL (0.0-0.9); Calcium 8.5 mg/dL (8.5-10.1); Carbon Dioxide 30 mmol/L (21.0-32.0); Chloride 103 mmol/L (98-107); Globulin 3.6 gm/dl (1.3-3.2); Glucose 128 mg/dL (74-106); Sodium 140 mmol/L (136-145); Total Protein,Serum 7.4 gm/dL (6.4-8.2)
--- NOTE | 2019-06-06 20:53 | Emergency Department Note ---
ED Disposition Clinical Impression: Atrial fibrillation, chronic Syncope Qualifiers: Syncope type: unspecified Qualified Code(s): R55 - Syncope and collapse Disposition: Admitted as Observation Condition on Discharge: Good Instructions: DI for Syncope in Adults (Fainting), DI for Syncope in Children (Fainting) Referrals: Rober Horn [Primary Care Provider] - - Critical Care Critical Care Time: No Attestation: On 06/06/19, the high probability of a clinically significant, sudden or life threatening deterioration of the following system(s) required my full and direct attention, intervention and personal management. The time I documented below is in addition to time spent performing reported procedures but includes the following listed in this critical care notation. Medical Decision Making - Medical Records Medical records reviewed: Yes: I reviewed the patient's medical records. - Noah Inquiry Pt receiving controlled substance: No Vital Signs: 06/06/19 20:10 Temperature 98.3 F Temperature Source Oral Pulse Rate [Right] 74 Respiratory Rate 18 Blood Pressure [Right Arm] 148/76 H Blood Pressure Mean [Right Arm] 100 Blood Pressure Source [Right Arm] Automatic Cuff Blood Pressure Position [Right Arm] Supine 02 Sat by Pulse Oximetry 93 L Oxygen Delivery Method Room Air - Lab Data Lab results reviewed: Yes: I reviewed the patient's lab results. Lab Results 06/06/19 20:10: WBC 10.7, RBC 5.22, Hgb 16.2, Hct 49.7, MCV 95.3 H, MCH 31.1, MCHC 32.6, RDW 12.6, Plt Count 327, MPV 7.9, Neut % (Auto) 82.8 H, Lymph % (Auto) 9.7 L, [place] % (Auto) 5.7, Eos % (Auto) 1.5, Baso % (Auto) 0.3, Neut # (Auto) 8.9 H, Lymph # (Auto) 1.0, [place] # (Auto) 0.6, Eos # (Auto) 0.2, Baso # (Auto) 0.0 06/06/19 20:10: Sodium 140, Potassium 4.0, Chloride 103, Carbon Dioxide 30, Anion Gap 11.0, BUN 25 H, Creatinine 1.65 H, Estimated Creat Clear 46, Estimated GFR 41 L, Est GFR ( Amer) 49 L, Glucose 128 H, Calcium 8.5, Total Bilirubin 0.9, AST 29, ALT 32, Alkaline Phosphatase 69, Troponin I < 0.02, C- Reactive Protein 0.2, Total Protein 7.4, Albumin 3.8, Globulin 3.6 H, Albumin/Globulin Ratio 1.1, Amylase 98, Lipase 222 06/06/19 20:10: Magnesium 2.2 Result diagrams: 06/06/19 20:10 06/06/19 20:10 Orders (Tests/Meds): ED MEDICATIONS Generic Name Dose Route Start Last Admin Trade Name Freq PRN Reason Stop Dose Admin Sodium Chloride 1,000 mls @ 999 mls/hr 06/06/19 20:30 06/06/19 20:31 Sod Chlor 0.9% 1000ml Bag IV 06/06/19 21:30 999 mls/hr .Q1H1M [place] Administration ORDERS Category Date Time Status CT cervical spine wo con Stat Cat Scan 06/06/19 20:[address] head/brain wo con Stat Cat Scan 06/06/19 20:21 Taken XR chest portable Stat Exams 06/06/19 20:21 Taken XR pelvis 1-2V Stat Exams 06/06/19 20:25 Taken Complete Blood Count Auto Diff Stat Lab 06/06/19 20:10 Results Erythrocyte Sedimentation Rate Stat Lab 06/06/19 20:10 Results Troponin I Q3H Lab 06/06/19 23:30 Ordered Troponin I Q3H Lab 06/07/19 02:30 Ordered 12-lead EKG Request [ECG Request by /Emily] Stat Y 06/06/19 20:19 Ordered - CT Data CT Scan: Head, C-Spine Time Received: 21:[address] Reviewed: Yes: I have viewed the radiologist's interpretation Preliminary Findings: Abnormal (see reports ) - ECG Data Tracing #1 Arrhythmias present: afib Ischemic changes: non-specific ST-T wave changes - ARASH Score for Non-Stemi Age of Patient: 70-79 years old Heart Rate: 70-89 bpm Systolic Blood Pressure: 140-159 mmHg Serum Creatinine: 1.60-1.99 mg/dl CHF [place] Class: I-No CHF Other Risk Factors: None Non-Stemi Risk Score: 121 Syncope HPI - General Chief Complaint: Syncope Stated Complaint: SYNCOPE Time Seen by Provider: 06/06/19 20:15 Mode of Arrival: EMS Source of Information: Patient, Spouse, EMS, Medical Record Limitations: No Limitations Description of Symptoms (Recalled from ER Triage Doc. by RN): PATIENT PRESENTS TO [place] 4 VIA EMS FROM [facility] AFTER A SYNCOPAL EPISODE. REPORTS HAVING INTERMITTENT EPISODES OF SYNCOPE OVER THE LAST FEW WEEKS. REPORTS HISTORY OF CHRONIC AFIB AND STENT PLACEMENT. PATIENT A/OX4 UPON ARRIVAL. PATIENT DENIES CH EST PAIN OR ANY OTHER SYMPTOMS UPON ARRIVAL. - History of Present Illness HPI narrative: pt with acute syncopal episode at [facility] with ashen color and hr of 40 - no sz or chest pain reported MD complaint: loss of consciousness Onset (ago): hour(s) Prodromal symptoms: none Witnessed: yes - by bystander Context: at rest History: history of CAD Treatments prior to arrival: none - Related Data Home Medications Medication Instructions Recorded Confirmed triamterene 37.5 0.5 tab PO DAILY tab 07/04/18 06/06/19 mg-hydrochlorothiazide 25 mg tablet lisinopril 20 mg tablet 20 mg PO HS tab 05/16/19 06/06/19 Apixaban [Eliquis] 5 mg PO BID 06/06/19 06/06/19 Clopidogrel Bisulfate [Plavix 75mg 75 mg PO DAILY 06/06/19 06/06/19 Tab] Simvastatin 40 mg PO HS 06/06/19 06/06/19 Allergies Allergy/AdvReac Type Severity Reaction Status Date / Time No Known Allergies Allergy Verified 05/16/19 10:19 [facility] History - Hepatitis A Screen Drug use history?: No High risk sexual behaviors?: No History of sexually transmitted infection?: No Currently employed?: No Childcare worker?: No Do you have indoor plumbing?: Yes Do you have electricity?: Yes Attestation statement:: This patient has been screened for Hepatitis A risk factors. I have reviewed the patient's past medical history: Yes Medical History: Reports:: Atrial Fibrillation, Coronary Artery Disease, Hyperlipidemia, Hypertension Denies:: Cancer, Diabetes Mellitus Type 1, Diabetes Mellitus Type 2, MRSA Other Medical History: Reports: Cataracts Other Surgeries: Yes: Angioplasty, Cardiac Catheterization Amputation: No Fractures: No - Social History Smoking Status: Never smoker Alcohol Intake: never Alcohol Intake Frequency:: other Substance Use Type: denies use Occupational Status: retired Housing: house Household Members: spouse Family Hx:: Cancer, Hypertension ROS Obtained: Yes All systems reviewed & no additional complaints - Constitutional Constitutional: Denies fever(s) - Eyes Eyes: Denies change in vision - ENT Ears, Nose, Mouth, and Throat: Denies sore throat - Cardiovascular Cardiovascular: Denies chest pain, Denies dyspnea, Reports lightheadedness, Reports slow heart rate - Respiratory Respiratory: No cough - Gastrointestinal Gastrointestingal: Denies: abdominal pain - Genitourinary Male Genitourinary: Denies hematuria - Musculoskeletal Musculoskeletal: Denies joint pain - Integumentary/Breasts Skin/Breast: Denies rash - Neurologic Neurologic: Reports as per HPI, Denies abnormal speech, Reports dizziness, Denies focal weakness, Denies headache(s), Denies seizure-like activity Physical Exam - General General appearance: alert, in no apparent distress - Head Head exam: normocephalic - Eye Eye exam: Present: PERRL, EOMI. Absent: nystagmus - ENT ENT exam: Present: mucous membranes moist - Neck Neck exam: Present: trachea midline - Respiratory Respiratory exam: Absent: respiratory distress - Cardiovascular Cardiovascular exam: Present: irregular rhythm, systolic murmur - Abdominal Exam Abdominal exam: Present: soft - Extremities Exam Extremities exam: Present: full ROM - Neurological Exam Neurological exam: Present: alert, CN II-XII intact - Psychiatric Psychiatric exam: Present: normal affect - Skin Skin exam: Absent: rash
[2019-06-06 23:01] LABS: Erythrocyte Sedimentation Rate 15 mm/hr (0-20)
--- NOTE | 2019-06-07 07:14 | Pharmacy Consult Notes ---
[facility] Pharmacy VTE Monitoring - Patient Demographics Admission date: 06/06/19 Report Date: 06/07/19 Time: 07:13 Allergies/Adverse Reactions: Patient Allergies No Known Allergies Allergy (Verified 05/16/19 10:19) Height: 1.83 m Weight: 92.334 kg Patient Problems: Current Active Problems Syncope (Acute) Atrial fibrillation, chronic (Chronic) - VTE Risk Labs: VTE Related Lab Results Hgb 16.2 g/dL (14.1-18.0) 06/06/19 20:10 Hct 49.7 % (42.0-52.0) 06/06/19 20:10 Plt Count 327 K/mm3 (142-424) 06/06/19 20:10 BUN 25 mg/dL (7-18) H 06/06/19 20:10 Creatinine 1.65 mg/dL (0.70-1.30) H 06/06/19 20:10 Estimated Creat Clear 46 mL/min (50-200) 06/06/19 20:10 VTE Score: 5 VTE Risk Level: Low Risk - Prophylaxis VTE Prophylaxis Ordered?: Yes Types of VTE Prophylaxis: TEDS Knee High Location of Applied Device: Bilateral Lower Extremeties Pharmacologic Type: Other (eliquis ordered)
[2019-06-07 07:19] LABS: Basophils % 0.3 % (0.1-2.0); Eosinophils # 0.2 K/mm3 (0.0-0.4); Eosinophils % 1.5 % (0.1-12.0); Hematocrit 44.9 % (42.0-52.0); Hemoglobin 14.6 g/dL (14.1-18.0); Lymphocytes # 0.6 K/mm3 (0.7-4.5); Lymphocytes % 5.7 % (10-50); Mean Corpuscular HGB Conc 32.6 g/dL (31.8-35.4); Mean Corpuscular Volume 94.9 fl (80-94); Monocytes # 0.5 K/mm3 (0.1-1.0); Monocytes % 5.1 % (1.7-9.3); Neutrophils % 87.4 % (37.0-80.0); Platelet Count 283 K/mm3 (142-424); Red Blood Count 4.74 M/mm3 (4.60-6.20); Red Cell Distribution Width 12.6 % (11.5-17.5); White Blood Count 10.3 K/mm3 (4.8-10.8)
[2019-06-07 07:24] LABS: Calcium 7.9 mg/dL (8.5-10.1)
--- NOTE | 2019-06-07 08:19 | Consult Report ---
History of Present Illness Consult date: 06/07/19 Requesting physician: Nahum Thomason Chief complaint: syncope Additional Medical History:: 1. Coronary artery disease A. History of cardiac cath, 2010, chronic RCA occlusion. B. [facility], 07/2017, [place] to LAD (provides left to right collaterals to distal RCA) 2. History of vasovagal syncope, recurrent A. Frequent PVCs B. History of beta mary therapy discontinued for unknown reason 3. History of atrial fibrillation for which he is on Eliquis therapy 4. Hypertension A. Echo, 07/2017, 1. Technically difficult study because of the patient's factor and poor acoustic windows 2. The left atrium is moderately enlarged, left ventricle is normal size, mild concentric left ventricular hypertrophy, visually estimated ejection fraction approximately 50% with no obvious regional wall motion abnormality, endocardial subsequent poorly visualized. 3. The right atrium is moderately enlarged, right ventricle is mildly enlarged with normal contractility. 4. The aortic valve is thickened and calcified leaflet continue to display mobility. 5. The mitral valve leaflets are minimally thickened. 6. The pulmonic valve is poorly visualized 7. The tricuspid valve leaflets are minimally thickened. 8. No significant pericardial effusion noted. DOPPLER INTERROGATION: Doppler interrogation of the aortic, mitral and tricuspid valvular presence of mild mitral and moderate tricuspid regurgitation, likely right ventricular systolic pressure is 42 mmHg consistent with the moderate pulmonary hypertension, diastolic parameters are inconclusive. CONCLUSION: 1. Technically difficult study because of the patient's factor and poor acoustic windows 2. Moderate biatrial enlargement, normal left ventricular size, mild concentric left ventricular hypertrophy, visually estimated ejection fraction 50% with no obvious regional wall motion abnormality, diastolic parameters are inconclusive. 3. Mild mitral and moderate tricuspid regurgitation, calculated right ventricular systolic pressure is 42 mmHg consistent with moderate pulmonary hypertension 4. No significant pericardial effusion noted. 5. Hyperlipidemia, on statin History of present illness: 79 yo WM with history of CAD, chronic A. fib and vasovagal syncope presented to ER via EMS after syncopal episode at [facility] last evening. Pt relates not eating or drinking much yesterday but last evening he had some soup and crackers prior to the start of Bible study. 10 min into the study he became dizzy, ashen and unresponsive to his . She recruited help to lie him on the floor and reports he was out for less than a minute and within 5 min was talking and coherent. No seizure like activity or bowel/bladder incontinence noted. He denies any chest pain, palpitations, SOA or nausea prior to the syncopal episode. Patient does relate increasing his diuretic in the last 2 weeks and has had some mild GI upset with loose stools but no diarrhea in the last week. Overnight troponins have returned normal. EKG shows chronic atrial fibrillation with controlled rate and incomplete right bundle branch block with PVCs. Echocardiogram has been performed this morning with results pending. [facility] History Medical History: Reports:: Atrial Fibrillation, Coronary Artery Disease, Hyperlipidemia, Hypertension Denies:: Cancer, Diabetes Mellitus Type 1, Diabetes Mellitus Type 2, MRSA *Have you ever received a pneumonia vaccine?: Yes *Have you received a flu vaccine this season?: Yes (01/2019) Other Medical History: Reports: Cataracts Other Surgeries: Yes: Angioplasty, Cardiac Catheterization, Cholecystectomy, Colonoscopy, Coronary Stent, Hernia Repair (x2: umbilical & ingiuinal) Amputation: No Fractures: Yes (R wrist) - *Social History Educational Level: Attended College Smoking Status: Never smoker Alcohol Intake: former Alcohol Intake Frequency:: other Substance Use Type: denies use *Occupational Status:: retired Housing: house Household Members: spouse *Travel in the last 8 weeks: Inside the [facility] Family Hx:: Cancer, Hypertension Meds Home Medications Medication Instructions Recorded Confirmed Type triamterene 37.5 0.5 tab PO DAILY tab 07/04/18 06/06/19 History mg-hydrochlorothiazide 25 mg tablet lisinopril 20 mg tablet 20 mg PO HS tab 05/16/19 06/06/19 History Apixaban [Eliquis] 5 mg PO BID 06/06/19 06/06/19 History Clopidogrel Bisulfate [Plavix 75mg 75 mg PO DAILY 06/06/19 06/06/19 History Tab] Docusate Sodium [Colace] 100 mg PO DAILYP PRN 06/06/19 06/06/19 History Simvastatin 40 mg PO HS 06/06/19 06/06/19 History Allergies Allergy/AdvReac Type Severity Reaction Status Date / Time No Known Allergies Allergy Verified 05/16/19 10:19 Review of Systems - Review of Systems Review of systems:: pertinent systems reviewed and negative unless documented below - *Cardiovascular Denies chest pain, Denies shortness of breath - *Respiratory Reports cough, Denies shortness of breath - *Gastrointestinal Reports loose stools, Denies nausea, Denies vomiting - *Genitourinary Denies blood in urine - *Musculoskeletal Denies joint pain, Denies back pain - *Neurologic Reports dizziness, Denies abnormal speech, Denies localized weakness, Denies headache(s), Denies seizure-like activity Exam Vital signs and Labs for Last 24 Hours: Temp Pulse Resp BP Pulse Ox 98.9 F 80 18 116/71 91 L 06/07/19 07:43 06/07/19 07:43 06/07/19 07:43 06/07/19 07:43 06/07/19 07:43 Laboratory Results - last 24 hr 06/06/19 20:10: WBC 10.7, RBC 5.22, Hgb 16.2, Hct 49.7, MCV 95.3 H, MCH 31.1, MCHC 32.6, RDW 12.6, Plt Count 327, MPV 7.9, Neut % (Auto) 82.8 H, Lymph % (Auto) 9.7 L, [place] % (Auto) 5.7, Eos % (Auto) 1.5, Baso % (Auto) 0.3, Neut # (Auto) 8.9 H, Lymph # (Auto) 1.0, [place] # (Auto) 0.6, Eos # (Auto) 0.2, Baso # (Auto) 0.0, ESR 15 06/06/19 20:10: Sodium 140, Potassium 4.0, Chloride 103, Carbon Dioxide 30, Anion Gap 11.0, BUN 25 H, Creatinine 1.65 H, Estimated Creat Clear 46, Estimated GFR 41 L, Est GFR ( Amer) 49 L, Glucose 128 H, Calcium 8.5, Total Bilirubin 0.9, AST 29, ALT 32, Alkaline Phosphatase 69, Troponin I < 0.02, C- Reactive Protein 0.2, Total Protein 7.4, Albumin 3.8, Globulin 3.6 H, Albumin/Globulin Ratio 1.1, Amylase 98, Lipase 222 06/06/19 20:10: Magnesium 2.2 06/06/19 23:21: Troponin I < 0.02 06/07/19 02:25: Troponin I < 0.02 06/07/19 06:50: WBC 10.3, RBC 4.74, Hgb 14.6, Hct 44.9, MCV 94.9 H, MCH 30.9, MCHC 32.6, RDW 12.6, Plt Count 283, MPV 8.0, Neut % (Auto) 87.4 H, Lymph % (Auto) 5.7 L, [place] % (Auto) 5.1, Eos % (Auto) 1.5, Baso % (Auto) 0.3, Neut # (Auto) 9.0 H, Lymph # (Auto) 0.6 L, [place] # (Auto) 0.5, Eos # (Auto) 0.2, Baso # (Auto) 0.0 06/07/19 06:50: Sodium 142, Potassium 4.0, Chloride 108 H, Carbon Dioxide 26, Anion Gap 12.0, BUN 23 H, Creatinine 1.37 H, Estimated Creat Clear 58, Estimated GFR 50 L, Est GFR ( Amer) 61 D, Glucose 115 H, Calcium 7.9 L, Magnesium 1.9 D I & O for Last 24 hours: Intake & Output 06/04/19 06/05/19 06/06/19 06/07/19 11:59 11:59 11:59 11:59 Intake Total 2491 / 2491 Output Total 925 / 925 Balance 1566 / 1566 Weight 203 lb 9 oz - *Routine HEENT Exam Head: Present: normocephalic Eye: Present: EOMI, PERRL ENT: Present: mucous membranes moist - *Routine Neck Exam Present: supple. Absent: JVD, carotid bruit - *Routine Respiratory Exam Present: CTA bilaterally. Absent: accessory muscle use, rales, rhonchi, wheezes - *Routine Cardiovascular Exam Present: irregularly irregular. Absent: murmur, gallop, rubs - *Routine Abdominal Exam Present: soft. Absent: tenderness, distended, guarding - *Routine Extremities Exam Absent: edema, calf tenderness - *Routine Neurological Exam Present: alert, oriented X3, moving all extremities Assessment and Plan (1) Syncope Current visit: Yes Status: Acute Qualifiers: Syncope type: unspecified Qualified Code(s): R55 - Syncope and collapse Category: Medical Code(s): R55 - Syncope and collapse (2) Atrial fibrillation, chronic Current visit: Yes Status: Chronic Category: Medical Code(s): I48.2 - Chronic atrial fibrillation (3) Coronary artery disease Current visit: No Status: Chronic Qualifiers: Coronary Disease-Associated Artery/Lesion type: [place] artery [place] vs. transplanted heart: [place] heart Associated angina: without angina Qualified Code(s): I25.10 - Atherosclerotic heart disease of [place] coronary artery without angina pectoris Category: Medical Code(s): I25.10 - Atherosclerotic heart disease of [place] coronary artery without angina pectoris (4) Hyperlipidemia Current visit: No Status: Chronic Qualifiers: Hyperlipidemia type: mixed hyperlipidemia Qualified Code(s): E78.2 - Mixed hyperlipidemia Category: Medical Code(s): E78.5 - Hyperlipidemia, unspecified (5) Hypertension Current visit: No Status: Chronic Qualifiers: Hypertension type: essential hypertension Qualified Code(s): I10 - Essential (primary) hypertension Category: Medical Code(s): I10 - Essential (primary) hypertension - Assessment and plan all Dx Assessment and Plan for all problems:: 1. Syncopal episode in a patient with recent GI illness and increase in diuretic therapy which likely contributed to state of dehydration and the patient's episode of syncope. Troponins have returned normal. EKG shows no acute changes and preliminary echocardiogram shows preserved ejection fraction with mild valvular heart disease. Recommend discontinuing diuretic therapy at this time with repeat lab work and follow-up in the office in 1 to 2 weeks. 2. History of coronary artery disease for which the patient has been on Plavix therapy since a nosebleed in early 2017 in which time Brilinta and aspirin were discontinued. Due to recurrent falls would recommend discontinuing Plavix at this time. 3. Chronic atrial fibrillation, rate controlled. Continue anticoagulation with Eliquis therapy. Patient has previously been tried on beta-mary therapy by his previous perinatal nurse (Dr. Zaldivar) and each attempt resulted in discontinuation of the medication presumably due to bradycardia or hypotension. 4. Coronary artery disease with history of coronary stenting to the LAD, 07/2017, clinically stable. Continue current medical therapy including statin therapy. 5. Okay for discharge home later today with follow-up in our office in 1 to 2 weeks.
[2019-06-07 08:28] LABS: Eosinophils % 3 % (0-3); Lymphocytes % 5 % (10-50); Monocytes % 6 % (2-9); Neutrophils % 86 % (42-76); Total Cells Counted 100
[2019-06-07 08:29] LABS: RBC Morphology Normal
--- NOTE | 2019-06-07 09:01 | H&P/Discharge Summary ---
General - General Admission date:: 06/06/19 Discharge date: 06/07/19 *Admission Date: 06/06/19 *Chief complaint: syncope *History of present illness: Mr. Fletcher is a pleasant 79 yo WM with history of CAD, chronic A. fib and vasovagal syncope who came to the ER last night after a syncopal spell at latter day while sitting on the couch. Pt states he did not eat or drink well yesterday. Of note also had an increase in his diuretics. His reports that 10 min into the study he became dizzy, ashen and unresponsive to his . With help she laid him in the floor and he returned to consciousness after several rashi henrry. No seizure like activity or bowel/bladder incontinence noted. He denies any chest pain, palpitations, SOA or nausea prior to the syncopal episode. Patient does relate increasing his diuretic in the last 2 weeks and has had some mild GI upset with loose stools but no diarrhea in the last week. Overnight troponins have returned normal. EKG shows chronic atrial fibrillation with controlled rate and incomplete right bundle branch block with PVCs. Echocardiogram has been performed this morning with results pending. Admitted to medicine for further management, cardiology consulted. [facility] History I have reviewed the patient's past medical history: Yes Medical History: Reports:: Atrial Fibrillation, Coronary Artery Disease, Hyperlipidemia, Hypertension Denies:: Cancer, Diabetes Mellitus Type 1, Diabetes Mellitus Type 2, MRSA *Have you ever received a pneumonia vaccine?: Yes *Have you received a flu vaccine this season?: Yes (01/2019) Other Medical History: Reports: Cataracts Other Surgeries: Yes: Angioplasty, Cardiac Catheterization, Cholecystectomy, Colonoscopy, Coronary Stent, Hernia Repair (x2: umbilical & ingiuinal) Amputation: No Fractures: Yes (R wrist) - *Social History Educational Level: Attended College Smoking Status: Never smoker Alcohol Intake: former Alcohol Intake Frequency:: other Substance Use Type: denies use *Occupational Status:: retired Housing: house Household Members: spouse *Travel in the last 8 weeks: Inside the [place] Family Hx:: Cancer, Hypertension Review of Systems - Review of Systems Review of systems:: pertinent systems reviewed and negative unless documented below (14 point review of systems performed, pertinent negatives and positives as per HPI) - *Neurologic Reports dizziness, Denies abnormal speech, Denies localized weakness, Denies headache(s), Denies seizure-like activity Exam Vital signs and Labs for Last 24 Hours: Temp Pulse Resp BP Pulse Ox 98.9 F 80 18 116/71 91 L 06/07/19 07:43 06/07/19 07:43 06/07/19 07:43 06/07/19 07:43 06/07/19 07:43 Laboratory Results - last 24 hr 06/06/19 20:10: WBC 10.7, RBC 5.22, Hgb 16.2, Hct 49.7, MCV 95.3 H, MCH 31.1, MCHC 32.6, RDW 12.6, Plt Count 327, MPV 7.9, Neut % (Auto) 82.8 H, Lymph % (Auto) 9.7 L, Riley % (Auto) 5.7, Eos % (Auto) 1.5, Baso % (Auto) 0.3, Neut # (Auto) 8.9 H, Lymph # (Auto) 1.0, Riley # (Auto) 0.6, Eos # (Auto) 0.2, Baso # (Auto) 0.0, ESR 15 06/06/19 20:10: Sodium 140, Potassium 4.0, Chloride 103, Carbon Dioxide 30, Anion Gap 11.0, BUN 25 H, Creatinine 1.65 H, Estimated Creat Clear 46, Estimated GFR 41 L, Est GFR ( Amer) 49 L, Glucose 128 H, Calcium 8.5, Total Bilirubin 0.9, AST 29, ALT 32, Alkaline Phosphatase 69, Troponin I < 0.02, C- Reactive Protein 0.2, Total Protein 7.4, Albumin 3.8, Globulin 3.6 H, Albumin/Globulin Ratio 1.1, Amylase 98, Lipase 222 06/06/19 20:10: Magnesium 2.2 06/06/19 23:21: Troponin I < 0.02 06/07/19 02:25: Troponin I < 0.02 06/07/19 06:50: WBC 10.3, RBC 4.74, Hgb 14.6, Hct 44.9, MCV 94.9 H, MCH 30.9, MCHC 32.6, RDW 12.6, Plt Count 283, MPV 8.0, Neut % (Auto) 87.4 H, Lymph % (Auto) 5.7 L, Riley % (Auto) 5.1, Eos % (Auto) 1.5, Baso % (Auto) 0.3, Neut # (Auto) 9.0 H, Lymph # (Auto) 0.6 L, Riley # (Auto) 0.5, Eos # (Auto) 0.2, Baso # (Auto) 0.0, Total Counted 100, Neutrophils % (Manual) 86 H, Lymphocytes % (Manual) 5 L, Monocytes % (Manual) 6, Eosinophils % (Manual) 3, Platelet Estimate Slight increase, RBC Morphology Normal 06/07/19 06:50: Sodium 142, Potassium 4.0, Chloride 108 H, Carbon Dioxide 26, Anion Gap 12.0, BUN 23 H, Creatinine 1.37 H, Estimated Creat Clear 58, Estimated GFR 50 L, Est GFR ( Amer) 61 D, Glucose 115 H, Calcium 7.9 L, Magnesium 1.9 D I & O for Last 24 hours: Intake & Output 06/04/19 06/05/19 06/06/19 06/07/19 23:59 23:59 23:59 23:59 Intake Total 1000 / 1000 1491 / 1491 Output Total 300 / 300 625 / 625 Balance 700 / 700 866 / 866 Weight 92.164 kg 92.334 kg - *Routine HEENT Exam Head: Present: normocephalic Eye: Present: EOMI, PERRL ENT: Present: mucous membranes moist - *Routine Neck Exam Present: supple. Absent: lymphadenopathy - *Routine Respiratory Exam Present: CTA bilaterally - *Routine Cardiovascular Exam Present: irregularly irregular. Absent: murmur Comments: regular rate - *Routine Abdominal Exam Present: soft, normoactive bowel sounds. Absent: tenderness - *Routine Extremities Exam Absent: cyanosis, clubbing, edema - *Routine Skin Exam Present: warm. Absent: rash - *Routine Neurological Exam Present: alert, oriented X3 Hospital Course Hospital Course: Admitted for syncopal episode. Cardiology saw patient this morning, no signs of orthostatic hypotension. Further interview elicits that patient has been having worsening symptoms since increasing his diuretic. Additionally he is 3 years out from stent placement and has no clear indication for antiplatelet therapy. Has he had no further events during admission, recommend stopping his diuretic at discharge and stopping his Plavix. Follow-up in the outpatient setting with his primary care and cardiology. Results Labs on day of discharge: Labs from last 24 hours 06/07/19 06/07/19 06/07/19 06:50 06:50 02:25 WBC 10.3 RBC 4.74 Hgb 14.6 Hct 44.9 MCV 94.9 H MCH 30.9 MCHC 32.6 RDW 12.6 Plt Count 283 MPV 8.0 Neut % (Auto) 87.4 H Lymph % (Auto) 5.7 L Riley % (Auto) 5.1 Eos % (Auto) 1.5 Baso % (Auto) 0.3 Neut # (Auto) 9.0 H Lymph # (Auto) 0.6 L Riley # (Auto) 0.5 Eos # (Auto) 0.2 Baso # (Auto) 0.0 Total Counted 100 Neutrophils % (Manual) 86 H Lymphocytes % (Manual) 5 L Monocytes % (Manual) 6 Eosinophils % (Manual) 3 Platelet Estimate Slight increase RBC Morphology Normal ESR Sodium 142 Potassium 4.0 Chloride 108 H Carbon Dioxide 26 Anion Gap 12.0 BUN 23 H Creatinine 1.37 H Estimated Creat Clear 58 Estimated GFR 50 L Est GFR ( Amer) 61 D Glucose 115 H Calcium 7.9 L Magnesium 1.9 D Total Bilirubin AST ALT Alkaline Phosphatase Troponin I < 0.02 C-Reactive Protein Total Protein Albumin Globulin Albumin/Globulin Ratio Amylase Lipase 06/06/19 06/06/19 06/06/19 23:21 20:10 20:10 WBC RBC Hgb Hct MCV MCH MCHC RDW Plt Count MPV Neut % (Auto) Lymph % (Auto) Riley % (Auto) Eos % (Auto) Baso % (Auto) Neut # (Auto) Lymph # (Auto) Riley # (Auto) Eos # (Auto) Baso # (Auto) Total Counted Neutrophils % (Manual) Lymphocytes % (Manual) Monocytes % (Manual) Eosinophils % (Manual) Platelet Estimate RBC Morphology ESR Sodium 140 Potassium 4.0 Chloride 103 Carbon Dioxide 30 Anion Gap 11.0 BUN 25 H Creatinine 1.65 H Estimated Creat Clear 46 Estimated GFR 41 L Est GFR ( Amer) 49 L Glucose 128 H Calcium 8.5 Magnesium 2.2 Total Bilirubin 0.9 AST 29 ALT 32 Alkaline Phosphatase 69 Troponin I < 0.02 < 0.02 C-Reactive Protein 0.2 Total Protein 7.4 Albumin 3.8 Globulin 3.6 H Albumin/Globulin Ratio 1.1 Amylase 98 Lipase 222 06/06/19 20:10 WBC 10.7 RBC 5.22 Hgb 16.2 Hct 49.7 MCV 95.3 H MCH 31.1 MCHC 32.6 RDW 12.6 Plt Count 327 MPV 7.9 Neut % (Auto) 82.8 H Lymph % (Auto) 9.7 L Riley % (Auto) 5.7 Eos % (Auto) 1.5 Baso % (Auto) 0.3 Neut # (Auto) 8.9 H Lymph # (Auto) 1.0 Riley # (Auto) 0.6 Eos # (Auto) 0.2 Baso # (Auto) 0.0 Total Counted Neutrophils % (Manual) Lymphocytes % (Manual) Monocytes % (Manual) Eosinophils % (Manual) Platelet Estimate RBC Morphology ESR 15 Sodium Potassium Chloride Carbon Dioxide Anion Gap BUN Creatinine Estimated Creat Clear Estimated GFR Est GFR ( Amer) Glucose Calcium Magnesium Total Bilirubin AST ALT Alkaline Phosphatase Troponin I C-Reactive Protein Total Protein Albumin Globulin Albumin/Globulin Ratio Amylase Lipase DS: Diagnosis - Discharge Diagnosis (1) Syncope Status: Acute (2) Atrial fibrillation, chronic Status: Chronic (3) Coronary artery disease Status: Chronic (4) Hyperlipidemia Status: Chronic (5) Hypertension Status: Chronic Discharge Plan - Patient Discharge Instructions ACTIVITY: Continue current activity, Ambulate as tolerated DIET: continue same diet Patient Instructions: DI for Syncope in Adults (Fainting), Atrial Fibrillation - Follow up Plan Follow up with: Rober Horn [Primary Care Provider] - Disposition: Home, Self-Nursing Home Medications: Home Medications Medication Instructions Recorded Confirmed Type lisinopril 20 mg tablet 20 mg PO HS tab 05/16/19 06/06/19 History Apixaban [Eliquis] 5 mg PO BID 06/06/19 06/06/19 History Docusate Sodium [Colace] 100 mg PO DAILYP PRN 06/06/19 06/06/19 History Simvastatin 40 mg PO HS 06/06/19 06/06/19 History Prescriptions/Medication Reconciliation: Continued lisinopril 20 mg tablet 20 mg PO HS tab Simvastatin 40 mg PO HS Apixaban [Eliquis] 5 mg PO BID Docusate Sodium [Colace] 100 mg PO DAILYP PRN PRN Reason: stool softner Discontinued triamterene 37.5 mg-hydrochlorothiazide 25 mg tablet 0.5 tab PO DAILY tab Clopidogrel Bisulfate [Plavix 75mg Tab] 75 mg PO DAILY - Problem Reconciliation Problems Reviewed?: Yes
--- NOTE | 2019-06-08 14:11 | Cardiology Report ---
APPROVED REPORT EXAM: Comprehensive 2D, Doppler, and color-flow Echocardiogram Child'S Nurse: Shelby Mccormick CRT Ht: 6 ft 0 in Wt: 193lbs BSA: 2.10 BP: 148/76 mmHg Indications: Chest Pain, Hyperlipidemia, Hypertension/HDD, stent, cad, Arrhythmia 2D Dimensions LVOT 2.13 cm (M/F) 1.5-2.5 M-Mode Dimensions RVDd 2.69 cm (0.9-2.6)LVDd 4.53 cm (3.5-5.7) LVDs 3.44 cm (3.5-5.7)IVSd 2.03 cm (0.6-1.1) PWd 0.41 cm (0.6-1.1)EF (Teich) 48.00% FS 24.10% EDV (Teich) 93.90 mL ESV (Teich) 48.80 mL Left Ventricle Left atrium is mildly enlarged, left ventricle is normal size, mild concentric left ventricular hypertrophy, visually estimated ejection fraction 55% with no regional wall motion abnormality, diastolic parameters are inconclusive. Right Ventricle Right atrium and right ventricular mildly enlarged with normal contractility. Aortic Valve Aortic valve is minimally thickened and fibrosed, there is no aortic stenosis, there is mild aortic insufficiency. Mitral Valve Mitral valve is grossly normal, there is mild mitral regurgitation. Tricuspid Valve Tricuspid valve is grossly normal, there is mild tricuspid regurgitation, calculated right ventricular systolic pressure is 45 mmHg. Pulmonic Valve Pulmonic valve is poorly visualized. Great Vessels Aortic root is normal size. Pericardium No significant pericardial effusion noted. Conclusion 1. Biatrial enlargement, normal left ventricular size, mild concentric left ventricular hypertrophy, visually estimated ejection fraction 55% with no regional wall motion abnormality, diastolic parameters are inconclusive. 2. Mildly enlarged right ventricle with normal contractility. 3. Mild aortic, mild mitral and tricuspid regurgitation, calculated right ventricular systolic pressure is 45 mmHg. 4. No significant pericardial effusion noted Electronically signed by : Nael Rios, 06/08/2019 14:10:27
--- NOTE | 2019-06-08 15:52 | Electrocardiograph Report ---
APPROVED REPORT Exam: Resting ECG HR:67 bpm ECG Measurements Heart Rate 67 AXES QRSd 94 QRS 60 QT 420 T29 QTc 443 <Conclusion> Atrial fibrillation with premature ventricular or aberrantly conducted complexes Low voltage QRS Incomplete right bundle branch block Abnormal ECG Electronically signed by : oRber Horn, 06/08/2019 15:52:25
== END 2019-06-07 09:57 | disposition home or self-care (01) ==
LOC: ER 20:01 → 2ND 20:01
PROVIDERS: ADMIT Emergency Medicine; ATTEND Internal Medicine Adolescent Medicine
CPT/HCPCS: 36415; 70450; 71010; 71045; 72125; 72170; 80048; 80053; 82150; 83690; 83735; 84484; 85007; 85025; 85651; 86140; 93005; 93306; 96365; 99284; G0378

== ENCOUNTER → 2020-04-22 10:18 | Outpatient (POV) | payer MEDICARE, SELFPAY | PROVIDERS: Visit Provider Dermatology | DX: Z00.00 Encounter for general adult medical examination without abnormal findings (principal) ==

== ENCOUNTER → 2020-05-27 09:53 | Outpatient (POV) | payer MEDICARE, SELFPAY | PROVIDERS: Visit Provider Dermatology | DX: Z00.00 Encounter for general adult medical examination without abnormal findings (principal) ==

== ENCOUNTER → 2020-08-26 08:52 | Outpatient (POV) | payer MEDICARE, SELFPAY | PROVIDERS: Visit Provider Dermatology | DX: Z00.00 Encounter for general adult medical examination without abnormal findings (principal) ==

== ENCOUNTER → 2020-10-14 09:52 | Outpatient (POV) | payer MEDICARE, SELFPAY | PROVIDERS: Visit Provider Dermatology | DX: Z00.00 Encounter for general adult medical examination without abnormal findings (principal) ==

== ENCOUNTER → 2021-03-16 17:27 | Outpatient (CLI) | payer MEDICARE, SELFPAY ==
[2021-03-16 18:53] LABS: Alanine Aminotransferase 21 U/L (12-78); Albumin Level 3.9 g/dl (3.5-5.0); Albumin/Globulin Ratio 1.6 (1.1-1.8); Alkaline Phosphatase 64 U/L (38-126); Anion Gap 12.5 mEq/L (5-15); Aspartate Amino Transferase 37 U/L (17-59); Blood Urea Nitrogen 16 mg/dl (9-20); Carbon Dioxide 31 mmol/L (22.0-30.0); Chloride 103 mmol/L (98-107); Chol/HDL Ratio 3.8 (1-3.5); Cholesterol 119 mg/dl (140-200); Estimated Glomerular Filt Rate 58 ml/min (>60); GFR (African American) 71 ML/MIN (>60); Globulin 2.5 g/dL (1.3-3.2); Glucose 68 mg/dl (74-100); HDL Cholesterol 31 mg/dl (40-60); Potassium 4.5 mmoL/L (3.5-5.1); Sodium 142 mmol/L (136-145); Total Protein,Serum 6.4 g/dl (6.3-8.2); Triglycerides 73 mg/dl (30-150); VLDL Cholesterol 15 mg/dL (0-40)
[2021-03-16 19:04] LABS: Direct LDL Cholesterol 70.46 mg/dL (100-129)
== END ==
PROVIDERS: Visit Provider Internal Medicine
DX: I25.10 Atherosclerotic heart disease of native coronary artery without angina pectoris (principal); I10 Essential (primary) hypertension; E78.5 Hyperlipidemia, unspecified; Z95.9 Presence of cardiac and vascular implant and graft, unspecified
CPT/HCPCS: 80053; 80061

== ENCOUNTER 2021-04-29 16:07 | Emergency (ER) | payer MEDICARE, SELFPAY ==
[2021-04-29 16:08] VITALS: BP 152/92; PULSE 85; RESP 18; TEMP 36.7; O2SAT 97; BMI 27.5
--- NOTE | 2021-04-29 16:45 | CT_ITS ---
PROCEDURE INFORMATION: Exam: CT Abdomen And Pelvis With Contrast Exam date and time: 04/29/2021 4:45 PM Age: 80 years old Clinical indication: Constipation TECHNIQUE: Imaging protocol: Computed tomography of the abdomen and pelvis with contrast. Radiation optimization: All CT scans at this facility use at least one of these dose optimization techniques: automated exposure control; mA and/or kV adjustment per patient size (includes targeted exams where dose is matched to clinical indication); or iterative reconstruction. Contrast material: ISOVUE; Contrast volume: 75 ml; Contrast route: IV; COMPARISON: CR XR PELVIS 1-2V 06/06/2019 8:47 PM FINDINGS: Lungs: No acute findings in the visualized lower lungs. Mild dependent atelectasis or scarring in the posterior lower lungs, no focal consolidation. Heart: Coronary artery disease. Trace pericardial effusion. Cardiac size within upper limits normal/borderline. Liver: The liver is normal. Gallbladder and bile ducts: Cholecystectomy clips. Biliary tree within normal limits. No calcified stones. Pancreas: Fatty atrophic changes of the pancreas, likely age related. No mass. No ductal dilatation. Spleen: The spleen is normal. Adrenal glands: The adrenal glands are normal. Kidneys and ureters: 4.1 cm simple appearing posterior left renal cortical cyst, HU density 6, series 4, image 45. Some tiny subcentimeter hypoattenuating lesions in the right kidney are likely cysts, but only a few mm, too small to accurately characterize. No suspicious lesions requiring follow-up. Focal wedge-shaped fatty scarring in the right upper pole kidney coronal image 58, axial series 4, image 40. No hydronephrosis, hydroureter, or obstructing calcified ureteral stones. Stomach and bowel: The rectum is distended with fecal material and gas up to 8.5 cm diameter, worrisome for rectal fecal impaction. Prominent circumferential thickening of the lower rectum coronal image 58, axial series 4, image 21, over 2 cm thickness, correlate for proctitis. Recommend follow-up to exclude anal rectal neoplasm. [id number] distention of the remainder of colon, consistent with constipation, but no other significantly dilated loops or mucosal thickening.There is diverticulosis coli, without evidence of acute diverticulitis. No acute findings in the small intestine or stomach. Appendix: A normal appendix is identified. Intraperitoneal space: There is no significant free intraperitoneal fluid. There is no free intraperitoneal air. Vasculature: The vasculature demonstrates scattered mild atherosclerotic calcification. There is no aortic aneurysm. No portal venous gas. Lymph nodes: No significantly enlarged lymph nodes by short axis criteria. Urinary bladder: The bladder is normal. Reproductive: Unremarkable as visualized. Bones/joints: There are spinal degenerative changes, with multilevel disc narrrowing and spondylosis. No acute appearing fracture or high-grade listhesis. Multilevel facet arthropathy. Mild hip arthritis. Soft tissues: There is a tiny fatty umbilical hernia; no herniated bowel loops. There are no soft tissue masses or fluid collections. IMPRESSION: 1. Findings suggest constipation and rectal fecal impaction. Rectum is dilated to 8.5 cm distended with fecal material and gas, and there is lower rectal wall thickening over 2 cm worrisome for proctitis. Recommend follow-up to resolution, to exclude underlying anal-rectal cancer. 2. There is diverticulosis coli, without evidence of acute diverticulitis. 3. Additional nonemergency and chronic findings as above. COMMENTS: Consistent with the [employer]
--- NOTE | 2021-04-29 17:01 | PC.NURSE ---
Blood sent to lab
[2021-04-29 17:10] LABS: Chloride 102 mmol/L (98-107)
[2021-04-29 17:11] LABS: Sodium 140 mmol/L (136-145)
[2021-04-29 17:13] LABS: Alanine Aminotransferase 23 U/L (12-78); Alkaline Phosphatase 66 U/L (38-126); Aspartate Amino Transferase 36 U/L (17-59); Bilirubin,Total 0.4 mg/dl (0.2-1.3); Blood Urea Nitrogen 20 mg/dl (9-20); Creatinine Clearance Estimated 71 mL/min (50-200); Estimated Glomerular Filt Rate 65 ml/min (>60); GFR (African American) 78 ML/MIN (>60)
[2021-04-29 17:14] LABS: Albumin Level 4.1 g/dl (3.5-5.0); Albumin/Globulin Ratio 1.5 (1.1-1.8); Calcium 9.1 mg/dl (8.4-10.2); Carbon Dioxide 32 mmol/L (22.0-30.0); Globulin 2.8 g/dL (1.3-3.2); Glucose 88 mg/dl (74-100); Lipase 120 U/L (23-300); Total Protein,Serum 6.9 g/dl (6.3-8.2)
[2021-04-29 17:30] LABS: Lactic Acid 0.7 mmol/L (0.7-2.1)
[2021-04-29 17:35] LABS: Basophils # 0.1 K/mm3 (0-0.2); Basophils % 0.5 % (0.1-2.0); Eosinophils # 0.2 K/mm3 (0.0-0.4); Eosinophils % 1.6 % (0.1-12.0); Hematocrit 45.9 % (42.0-52.0); Hemoglobin 14.5 g/dL (14.1-18.0); Lymphocytes # 1.5 K/mm3 (0.7-4.5); Mean Corpuscular HGB Conc 31.6 g/dL (31.8-35.4); Mean Corpuscular Hemoglobin 31.5 pg (27.0-31.2); Mean Corpuscular Volume 99.6 fl (80-94); Mean Platelet Volume 7.9 fl (7.4-10.4); Monocytes # 0.6 K/mm3 (0.1-1.0); Monocytes % 4.6 % (1.7-9.3); Neutrophils # 11.2 K/mm3 (1.8-7.8); Neutrophils % 82.2 % (37.0-80.0); Platelet Count 299 K/mm3 (142-424); Red Blood Count 4.61 M/mm3 (4.60-6.20); Red Cell Distribution Width 13.4 % (11.5-17.5); White Blood Count 13.7 K/mm3 (4.8-10.8)
--- NOTE | 2021-04-29 17:43 | PC.NURSE ---
Pt returned from CT
--- NOTE | 2021-04-29 18:09 | [facility].EDABDPAI ---
ED Disposition Clinical Impression: Constipation Disposition: Home, Self-Care Condition on Discharge: Fair Referrals: Rober Horn [Primary Care Provider] - - Critical Care Critical Care Time: No Attestation: On 04/29/21, the high probability of a clinically significant, sudden or life threatening deterioration of the following system(s) required my full and direct attention, intervention and personal management. The time I documented below is in addition to time spent performing reported procedures but includes the following listed in this critical care notation. Medical Decision Making - Medical Records Medical records reviewed: Yes: I reviewed the patient's medical records. - Noah Inquiry Pt receiving controlled substance: No Noah was queried for this patient: No Vital Signs: 04/29/21 16:08 Temperature 98.1 F Temperature Source Oral Pulse Rate [Left Radial] 85 Respiratory Rate 18 Blood Pressure [Left Arm] 152/92 H Blood Pressure Mean [Left Arm] 112 Blood Pressure Source [Left Arm] Automatic Cuff Blood Pressure Position [Left Arm] Standing 02 Sat by Pulse Oximetry 97 Oxygen Delivery Method Room Air - Lab Data Lab results reviewed: Yes: I reviewed the patient's lab results. Lab Results 04/29/21 16:57: WBC 13.7 H, RBC 4.61, Hgb 14.5, Hct 45.9, MCV 99.6 H, MCH 31.5 H, MCHC 31.6 L, RDW 13.4, Plt Count 299, MPV 7.9, Neut % (Auto) 82.2 H, Lymph % (Auto) 11.0, [place] % (Auto) 4.6, Eos % (Auto) 1.6, Baso % (Auto) 0.5, Neut # (Auto) 11.2 H, Lymph # (Auto) 1.5, [place] # (Auto) 0.6, Eos # (Auto) 0.2, Baso # (Auto) 0.1 04/29/21 16:57: Sodium 140, Potassium 4.0, Chloride 102, Carbon Dioxide 32 H, Anion Gap 10.0, BUN 20, Creatinine 1.10, Estimated Creat Clear 71, Estimated GFR 65, Est GFR ( Amer) 78, Glucose 88, Calcium 9.1, Total Bilirubin 0.4, AST 36, ALT 23, Alkaline Phosphatase 66, Total Protein 6.9, Albumin 4.1, Globulin 2.8, Albumin/Globulin Ratio 1.5, Lipase 120 04/29/21 16:57: Lactate 0.7 Result diagrams: 04/29/21 16:57 04/29/21 16:57 Orders (Tests/Meds): ED MEDICATIONS Discontinued Medications Generic Name Dose Route Start Last Admin Trade Name Jimbo PRN Reason Stop Dose Admin Iopamidol 75 ml 04/29/21 17:45 04/29/21 17:45 Iopamidol-370 (76%);100ml Bottle IV 04/29/21 17:46 75 ml ONCE ONE Administration Sodium Chloride 10 ml 04/29/21 17:45 04/29/21 17:45 Sodium Chloride 0.9% 10ml Syr (Rad Only) IV 04/29/21 17:46 10 ml ONCE ONE Administration ORDERS Category Date Time Status CT abdomen pelvis w con Stat Cat Scan 04/29/21 16:45 Taken Medical Decision Narrative: Patient is a 80-year-old male with past medical history of constipation presenting to the ED with constipation. Patient is awake, alert, in acute distress. Patient is a medically stable, afebrile. Patient's physical exam is remarkable for mild distention, soft, tender abdomen. Stool can be felt in the lower left quadrant. DDX includes but is not limited to constipation, diverticulosis, diverticulitis, small bowel obstruction, large bowel obstruction, this. Given this a CBC, CMP, lipase, lactate is performed. CT abdomen pelvis is performed. Patient is given a soapsuds enema. Was able to have a large bowel movement after the soapsuds enema. Patient CT scan to me showed a large stool burden. Patient did not want to wait for the official read of the CT scan saying stating that he felt much much better after having a large bowel movement and wanted to be discharged. Discharged at this point in a stable condition. Abdominal Pain HPI - General Chief Complaint: Abdominal Pain Stated Complaint: constipation Time Seen by Provider: 04/29/21 18:10 Mode of Arrival: Ambulatory Limitations: No Limitations Description of Symptoms (Recalled from ER Triage Doc. by RN): Pt states that he has not had a BM in 5 days. Pt denies vomiting and denies abd pain. Pt states that he is having to wear a depend because h
[2021-04-29 19:09] VITALS: BP 138/81; PULSE 82; RESP 18; TEMP 36.7; O2SAT 98
== END 2021-04-29 19:10 | disposition home or self-care (01) ==
PROVIDERS: Emergency Provider Emergency Medicine; PCP Internal Medicine
DX: K59.00 Constipation, unspecified (principal); I48.91 Unspecified atrial fibrillation; I25.10 Atherosclerotic heart disease of native coronary artery without angina pectoris; K21.9 Gastro-esophageal reflux disease without esophagitis; E78.5 Hyperlipidemia, unspecified; I10 Essential (primary) hypertension; Z79.899 Other long term (current) drug therapy
CPT/HCPCS: 74177; 80053; 83605; 83690; 85025; 99282; Q9967

== ENCOUNTER 2021-09-15 09:48 | Observation (INO) | payer MEDICARE, SELFPAY ==
[2021-09-15] VITALS (18 sets, daily range): BP systolic 115–148; BP diastolic 64–93; PULSE 57–78; RESP 12–22; TEMP 36.6–37; O2SAT 94–100; BMI 25.7; BMI 27.2
--- NOTE | 2021-09-15 09:51 | XR_ITS ---
FINAL REPORT CLINICAL HISTORY: syncope COMPARISON: June 06, 2019 FINDINGS: The heart size is normal. The mediastinum is within normal limits. There are mild bibasilar opacities, favor atelectasis. There is no pleural effusion. There is no pneumothorax. The bony thorax is intact. IMPRESSION: Mild bibasilar opacities, favor atelectasis. Reviewed, Interpreted and Dictated by Pawan Hampton III, MD Transcribed by Ramiro Almonte Authenticated by Pawan Hampton III, MD on 09/15/2021 11:03:16 AM [facility]
--- NOTE | 2021-09-15 09:51 | ECG_ITS ---
APPROVED REPORT Exam: Resting ECG HR:63 bpm ECG Measurements Heart Rate 63 AXES QRSd 103 QRS 61 QT 439 T 26 QTc 446 Conclusion ATRIAL FIBRILLATION WITH ABERRANT CONDUCTION OR VENTRICULAR PREMATURE COMPLEXES INCOMPLETE RIGHT BUNDLE BRANCH BLOCK [90+ ms QRS DURATION, TERMINAL R IN V1/V2, 40+ ms S IN I/aVL/V4/V5/V6] ABNORMAL RHYTHM ECG UNCONFIRMED REPORT Electronically signed by : Urbano Waldrop MD 09/15/2021 21:05:55
--- NOTE | 2021-09-15 09:53 | HMH.EDGENADL ---
ED Disposition Clinical Impression: Syncope Qualifiers: Syncope type: unspecified Qualified Code(s): R55 - Syncope and collapse Atrial fibrillation Qualifiers: Atrial fibrillation type: unspecified Qualified Code(s): I48.91 - Unspecified atrial fibrillation Disposition: Admitted As Inpatient Condition on Discharge: Fair Referrals: Rober Horn [Primary Care Provider] - Time of Disposition: 12:48 - Critical Care Critical Care Time: No Attestation: On , the high probability of a clinically significant, sudden or life threatening deterioration of the following system(s) required my full and direct attention, intervention and personal management. The time I documented below is in addition to time spent performing reported procedures but includes the following listed in this critical care notation. Medical Decision Making - Medical Records Medical records reviewed: Yes: I reviewed the patient's medical records. - Noah Inquiry Pt receiving controlled substance: No Vital Signs: 09/15/21 09:49 09/15/21 10:01 09/15/21 10:31 Temperature 97.9 F Temperature Source Oral Pulse Rate 73 65 Pulse Rate [Left Radial] 64 Respiratory Rate 18 17 12 Blood Pressure 118/64 132/69 Blood Pressure [Right Arm] 115/68 Blood Pressure Mean [Right Arm] 83 Blood Pressure Source Automatic Cuff Automatic Cuff Blood Pressure Source [Right Arm] Automatic Cuff Blood Pressure Position Sitting Sitting Blood Pressure Position [Right Arm] Sitting 02 Sat by Pulse Oximetry 96 97 95 Oxygen Delivery Method Room Air Room Air Room Air 09/15/21 11:00 09/15/21 11:30 09/15/21 12:00 Temperature Temperature Source Pulse Rate 64 68 67 Pulse Rate [Left Radial] Respiratory Rate 19 18 14 Blood Pressure 129/85 130/84 136/89 Blood Pressure [Right Arm] Blood Pressure Mean [Right Arm] Blood Pressure Source Automatic Cuff Automatic Cuff Automatic Cuff Blood Pressure Source [Right Arm] Blood Pressure Position Sitting Sitting Sitting Blood Pressure Position [Right Arm] 02 Sat by Pulse Oximetry 95 94 L 95 Oxygen Delivery Method Room Air Room Air Room Air 09/15/21 12:30 Temperature Temperature Source Pulse Rate 71 Pulse Rate [Left Radial] Respiratory Rate 22 Blood Pressure 135/83 Blood Pressure [Right Arm] Blood Pressure Mean [Right Arm] Blood Pressure Source Automatic Cuff Blood Pressure Source [Right Arm] Blood Pressure Position Sitting Blood Pressure Position [Right Arm] 02 Sat by Pulse Oximetry 96 Oxygen Delivery Method Room Air - Lab Data Lab Results 09/15/21 10:00: SARS-CoV-2 (PCR) Not detected, Influenza A Untype (PCR) Not detected, Influenza Type B (PCR) Not detected 09/15/21 10:05: WBC 8.8, RBC 4.63, Hgb 14.6, Hct 44.9, MCV 96.9 H, MCH 31.5 H, MCHC 32.5, RDW 13.2, Plt Count 273, MPV 8.1, Neut % (Auto) 77.7, Lymph % (Auto) 13.1, [place] % (Auto) 6.9, Eos % (Auto) 1.4, Baso % (Auto) 0.9, Neut # (Auto) 6.9, Lymph # (Auto) 1.2, [place] # (Auto) 0.6, Eos # (Auto) 0.1, Baso # (Auto) 0.1 09/15/21 10:05: Sodium 136, Potassium 3.7, Chloride 103, Carbon Dioxide 28, Anion Gap 8.7, BUN 13, Creatinine 1.10, Estimated Creat Clear 65, Estimated GFR 64, Est GFR ( Amer) 78, Glucose 145 H, Calcium 8.9, Phosphorus 3.3, Magnesium 1.5 L, Total Bilirubin 1.2, AST 36, ALT 26, Alkaline Phosphatase 66, Troponin I < 0.01, Total Protein 6.2 L, Albumin 3.6, Globulin 2.6, Albumin/Globulin Ratio 1.4 Result diagrams: 09/15/21 10:05 09/15/21 10:05 Orders (Tests/Meds): ORDERS Category Date Time Status Troponin I Q3H Lab 09/15/21 13:00 Ordered Troponin I Q3 Lab 09/15/21 16:00 Ordered - ECG Data Tracing #1 In summary this is an 81-year-old male with history of atrial fibrillation presenting to the emergency department after syncopal episode. Patient clinically stable on arrival. Vital signs within normal limits. Heart rate is irregularly irregular, consistent with atrial fibrillation. It is ra
--- NOTE | 2021-09-15 10:00 | PC.NURSE ---
Hannah Davis, RN at ; Family at BS
--- NOTE | 2021-09-15 10:01 | PC.NURSE ---
ED MD at
[2021-09-15 10:09] LABS: Coronavirus 19, PCR Not Detected (NotDetected); Influenza A, PCR Not Detected (NotDetected); Influenza B, PCR Not Detected (NotDetected)
[2021-09-15 10:13] LABS: Basophils # 0.1 K/mm3 (0-0.2); Basophils % 0.9 % (0.1-2.0); Eosinophils # 0.1 K/mm3 (0.0-0.4); Eosinophils % 1.4 % (0.1-12.0); Hematocrit 44.9 % (42.0-52.0); Hemoglobin 14.6 g/dL (14.1-18.0); Lymphocytes # 1.2 K/mm3 (0.7-4.5); Lymphocytes % 13.1 % (10-50); Mean Corpuscular HGB Conc 32.5 g/dL (31.8-35.4); Mean Corpuscular Hemoglobin 31.5 pg (27.0-31.2); Mean Corpuscular Volume 96.9 fl (80-94); Mean Platelet Volume 8.1 fl (7.4-10.4); Monocytes # 0.6 K/mm3 (0.1-1.0); Monocytes % 6.9 % (1.7-9.3); Neutrophils # 6.9 K/mm3 (1.8-7.8); Neutrophils % 77.7 % (37.0-80.0); Platelet Count 273 K/mm3 (142-424); Red Blood Count 4.63 M/mm3 (4.60-6.20); Red Cell Distribution Width 13.2 % (11.5-17.5); White Blood Count 8.8 K/mm3 (4.8-10.8)
[2021-09-15 10:15] LABS: Chloride 103 mmol/L (98-107); Potassium 3.7 mmoL/L (3.5-5.1); Sodium 136 mmol/L (136-145)
[2021-09-15 10:18] LABS: Alanine Aminotransferase 26 U/L (12-78); Albumin Level 3.6 g/dl (3.5-5.0); Albumin/Globulin Ratio 1.4 (1.1-1.8); Alkaline Phosphatase 66 U/L (38-126); Anion Gap 8.7 mEq/L (5-15); Aspartate Amino Transferase 36 U/L (17-59); Bilirubin,Total 1.2 mg/dl (0.2-1.3); Blood Urea Nitrogen 13 mg/dl (9-20); Carbon Dioxide 28 mmol/L (22.0-30.0); Creatinine Clearance Estimated 65 mL/min (50-200); Estimated Glomerular Filt Rate 64 ml/min (>60); GFR (African American) 78 ML/MIN (>60); Globulin 2.6 g/dL (1.3-3.2); Phosphorous 3.3 mg/dl (2.5-4.5); Total Protein,Serum 6.2 g/dl (6.3-8.2)
[2021-09-15 10:19] LABS: Calcium 8.9 mg/dl (8.4-10.2); Glucose 145 mg/dl (74-100); Magnesium 1.5 mg/dl (1.6-2.3)
[2021-09-15 10:30] LABS: Troponin I < 0.01 ng/ml (0.00-0.034)
--- NOTE | 2021-09-15 12:20 | PC.NURSE ---
ED MD speaking with patient at BS
--- NOTE | 2021-09-15 12:34 | PC.NURSE ---
ED MD at speaking with patient
--- NOTE | 2021-09-15 12:46 | PC.NURSE ---
Dr. Marilyn sutherland for ED MD
--- NOTE | 2021-09-15 13:22 | PC.NURSE ---
Dr. Rankin speaking with Germain Hennessy in Cardiology
[2021-09-15 14:02] LABS: Troponin I < 0.01 ng/ml (0.00-0.034)
--- NOTE | 2021-09-15 14:04 | PC.NURSE ---
notified care management of admission
--- NOTE | 2021-09-15 14:09 | PC.NURSE ---
Germain Hennessy at , present during visit
--- NOTE | 2021-09-15 14:09 | PC.NURSE ---
Germain Hennessy at BS
--- NOTE | 2021-09-15 14:25 | HMH.CNCARD ---
History of Present Illness Consult date: 09/15/21 Requesting physician: Jimi Sanders Chief complaint: syncope Additional Medical History:: 1. CAD A. NE to LAD which collateralizes RCA, 2017 2. Hypertension A. Echocardiogram 05/2019, EF 55% 3. Chronic atrial fibrillation A. Chronic anticoagulation with Eliquis therapy 4. Hypertension, on QUINTIN and diuretic therapy 5. Hyperlipidemia, on statin therapy 6. History of GERD, on PPI therapy History of present illness: 81-year-old male presenting to the emergency department after syncopal episode. Happened just prior to arrival. He was sitting at home when he felt quite nauseous. Went into the kitchen where he had a witnessed syncopal episode, witnessed by his . She says he simply slumped onto the table. Was unconscious for less than 1 minute. Was not confused afterward. By the time EMS arrived, he felt much better. He does not remember passing out. Has had episodes like this before, often after working outside, in the heat, dehydrated. Nothing like that today. He is felt well over the last few days. Has had sinus congestion, cold. No fevers, chills, nausea, vomiting, headache, chest pain, palpitations, shortness of breath. He has atrial fibrillation, takes Eliquis. Denies recent injuries, head trauma In summary this is an 81-year-old male with history of atrial fibrillation presenting to the emergency department after syncope. Patient clinically stable on arrival. Vital signs within normal limits. Will obtain CBC, CMP, chest x-ray, EKG, troponin profile, magnesium level, phosphorus level. EKG shows rate controlled atrial fibrillation. No evidence of ischemia. Initial laboratory results are reassuring. There is no abnormality of glucose or electrolytes. Renal function is adequate. No elevation in troponin to suggest ischemia. On reassessment, patient says he is feeling better. at bedside states that the syncopal episode was quite distressing to her. He suddenly syncopized. Was unconscious for at least a few minutes. Appeared as if he became stiff. Took him a while to recover and answer questions. Concern for cardiac arrhythmia. I recommended admission. Patient agreeable. Cardiology consulted. Will obtain echocardiogram. The above per DEANNE Felipe MD. 81-year-old white male established patient of our practice with history of atrial fibrillation on chronic anticoagulation therapy. Patient denies any recent fever, chills, vomiting or diarrhea. Denies any exertional chest pain, pressure or tightness. Was out working in the yard when he became nauseated. He went inside to sit down and when his was preparing a cold washcloth for him he apparently he passed out for about a minute. He denies any prior chest pain only the upper abdominal sensation that he describes as nausea. Work-up here in the ER included EKG which shows atrial fibrillation with incomplete right bundle and frequent PVCs. Lab work essentially unremarkable including troponin which is normal. Of note, patient had coronary stenting to his LAD 4 years ago (which collateralizes his RCA) with patient describing mild left-sided chest discomfort and apparent syncope at that time as well. Discussed with Dr. Barrera and would recommend [place] in the morning for further evaluation. Most recent echocardiogram was May 2019 having a normal EF. [facility] History Medical History: Reports:: Atrial Fibrillation, Coronary Artery Disease, Gastroesophageal Reflux Disease(GERD), Hyperlipidemia, Hypertension Denies:: Cancer, Diabetes Mellitus Type 1, Diabetes Mellitus Type 2, Internal Pacemaker, MRSA, Seizures *Have you ever received a pneumonia vaccine?: Yes *Have you received a flu vaccine this season?: Yes Other Medical History: Reports: Cataracts Other Surgeries: Yes: Angioplasty, Cardiac Catheterization, Cholecystectomy, Colonoscopy, Coronary Stent, Hernia Repair (x2: umbilical & ingiuinal).
--- NOTE | 2021-09-15 14:33 | HMH.PHAINT ---
MEDICATION RECONCILIATION COMPLETED ON PATIENT USING EXTERNAL FILL HISTORY FROM PHARMACY. -BURKE CARROLL, TAMMYD
--- NOTE | 2021-09-15 14:51 | PC.NURSE ---
report given to Lavinia MATHIS
--- NOTE | 2021-09-15 15:01 | INFXCTL.NOTE ---
Pt arrived to the floor at this time
--- NOTE | 2021-09-15 15:13 | CA_ITS ---
APPROVED REPORT EXAM: Comprehensive 2D, Doppler, and color-flow Echocardiogram Shipping Technician: Shelby Mccormick CRT Ht: 6 ft 0 in Wt: 201lbs BSA: 2.14 BP: 135/83 mmHg Indications: Atrial Fibrillation, Syncope, Palpitations, CAD, Hyperlipidemia, Hypertension/HDD, stent 2D Dimensions LVOT 2.00 cm (M/F) 1.5-2.5 LA Volume 80.50 mL LA Volume Index 37.80 mL/m2 (M/F) 16-34 M-Mode Dimensions RVDd 3.41 cm (0.9-2.6) LA Diam 4.46 cm (1.9-4.0) LVDd 4.72 cm (3.5-5.7) Ao Diam 4.46 cm (2.0-3.7) LVDs 3.18 cm (3.5-5.7) IVSd 1.27 cm (0.6-1.1) PWd 1.27 cm (0.6-1.1) EF (Teich) 61.00% FS 32.60% EDV (Teich) 103.40 mL TAPSE 3.14 (<1.7) ESV (Teich) 40.30 mL LV Diastology E Decel Time 167.00 (160-240 msec) E/A Ratio 3.82 LAT E' 10.80 (<10 cm/sec) LAT A' 3.40 cm/s E/LAT E' Ratio 7.47 (>14) Aortic Valve AI PHT 737.00 ms AO Peak GR. 5.40 mmHg Mitral Valve MV E Max Valentin. 81.00 (40-130 cm/s) MV A Velocity 21.00 (40-130 cm/s) E/A Ratio 3.82 MV Decel. Time 167.00 (160-240 ms) MV PHT 49.00 ms Pulmonary Valve PV Peak Velocity 196.00 (50-150 cm/s) Tricuspid Valve TR P. Velocity 282.00 cm/s RAP Estimate 10.00 mmHg RVSP 41.90 mmHg Left Ventricle Left atrium is mildly enlarged, left ventricle is normal size, mild concentric left ventricular hypertrophy, estimated ejection fraction 55% with no regional wall motion abnormality, diastolic parameters are inconclusive. Right Ventricle Right atrium and right ventricle are mildly enlarged with normal contractility. Aortic Valve Aortic valve is thickened and calcified without aortic stenosis, there is trace aortic insufficiency. Mitral Valve Mitral valve is minimally thickened, there is mild mitral regurgitation. Tricuspid Valve Tricuspid valve grossly normal, there is mild tricuspid regurgitation, calculated right ventricular systolic pressure 32 mmHg. Pulmonic Valve Pulmonic valve is poorly visualized. Great Vessels Aortic root is normal size. Inferior vena cava is poorly visualized. Pericardium Trivial pericardial effusion noted. Conclusion 1. Moderate biatrial enlargement, normal left ventricular size, mild concentric left ventricular hypertrophy, estimated ejection fraction 55% with no regional wall motion abnormality, diastolic parameters are inconclusive. 2. Trace aortic, mild mitral and tricuspid regurgitation. Calculated right ventricular systolic pressure 32 mmHg. 3. Trivial pericardial effusion noted. 4. Inferior vena cava is poorly visualized. Electronically signed by : Nael Rios MD 09/15/2021 19:35:30
[2021-09-16] VITALS: BP 102/70; PULSE 67; RESP 16; TEMP 37.2; O2SAT 94
[2021-09-16 04:00] VITALS: BP 138/82; PULSE 77; RESP 16; TEMP 36.7; O2SAT 94
--- NOTE | 2021-09-16 04:53 | PC.NURSE ---
pt has rested well this shift, has had no syncopal episodes t/o shift, has not complained of CP or SOA, HR 57-77, SBP 102-138, telemetry shows a. fib with a controlled rate, bed alarm has remained on this shift
[2021-09-16 04:55] VITALS: BMI 27.4
[2021-09-16 06:26] LABS: Basophils # 0.1 K/mm3 (0-0.2); Basophils % 1.1 % (0.1-2.0); Eosinophils # 0.2 K/mm3 (0.0-0.4); Eosinophils % 2.2 % (0.1-12.0); Hematocrit 44.9 % (42.0-52.0); Hemoglobin 14.7 g/dL (14.1-18.0); Lymphocytes # 1.7 K/mm3 (0.7-4.5); Lymphocytes % 23.2 % (10-50); Mean Corpuscular HGB Conc 32.8 g/dL (31.8-35.4); Mean Corpuscular Hemoglobin 31.9 pg (27.0-31.2); Mean Corpuscular Volume 97.3 fl (80-94); Mean Platelet Volume 7.9 fl (7.4-10.4); Monocytes # 0.9 K/mm3 (0.1-1.0); Monocytes % 11.9 % (1.7-9.3); Neutrophils # 4.5 K/mm3 (1.8-7.8); Neutrophils % 61.5 % (37.0-80.0); Platelet Count 252 K/mm3 (142-424); Red Blood Count 4.62 M/mm3 (4.60-6.20); Red Cell Distribution Width 13.6 % (11.5-17.5); White Blood Count 7.3 K/mm3 (4.8-10.8)
[2021-09-16 06:33] LABS: Anion Gap 8.9 mEq/L (5-15); Blood Urea Nitrogen 17 mg/dl (9-20); Calcium 8.6 mg/dl (8.4-10.2); Carbon Dioxide 31 mmol/L (22.0-30.0); Chloride 100 mmol/L (98-107); Creatinine Clearance Estimated 64 mL/min (50-200); Estimated Glomerular Filt Rate 58 ml/min (>60); GFR (African American) 70 ML/MIN (>60); Glucose 98 mg/dl (74-100); Potassium 3.9 mmoL/L (3.5-5.1); Sodium 136 mmol/L (136-145)
--- NOTE | 2021-09-16 08:41 | PC.NURSE ---
Pt back up to floor at this time. Stress test machine broken, audio visual engineer contacted and pt may be able to come back down once issue is fixed.
--- NOTE | 2021-09-16 08:52 | HMH.PHAVTE ---
[facility] Pharmacy VTE Monitoring - Patient Demographics Allergies/Adverse Reactions: Patient Allergies simvastatin Allergy (Mild, Verified 08/05/21 09:20) Height: 1.83 m Weight: 92.034 kg Patient Problems: Current Active Problems Syncope (Acute) Atrial fibrillation (Acute) History of placement of stent in LAD coronary artery (Acute) Atrial fibrillation, chronic (Chronic) Coronary artery disease (Chronic) Hypertension (Chronic) Hyperlipidemia (Chronic) - VTE Risk Labs: VTE Related Lab Results Hgb 14.7 g/dL (14.1-18.0) 09/16/21 05:38 Hct 44.9 % (42.0-52.0) 09/16/21 05:38 Plt Count 252 K/mm3 (142-424) 09/16/21 05:38 BUN 17 mg/dl (9-20) D 09/16/21 05:38 Creatinine 1.20 mg/dl (0.66-1.25) 09/16/21 05:38 Estimated Creat Clear 64 mL/min (50-200) 09/16/21 05:38 Was VTE Risk Assessment Performed: Yes VTE Score: 3 VTE Risk Level: Low Risk Clinical Trial Participant: No - Prophylaxis VTE Prophylaxis Ordered?: Yes Types of VTE Prophylaxis: TEDS Knee High Location of Applied Device: Bilateral Lower Extremeties
[2021-09-16 08:54] VITALS: BP 154/80; PULSE 63; RESP 16; TEMP 36.4; O2SAT 96
--- NOTE | 2021-09-16 08:55 | HMH.PNCARD ---
Subjective Date: 09/16/21 Time: 08:55 Principal diagnosis: syncope Interval history: 81-year-old white male in bed in no acute distress. Unfortunately the TrovaGene Myoview could not be completed due to technical issues with the camera. Patient denies any chest pain, pressure, tightness or recurrent syncope overnight. Telemetry shows only a few isolated PVCs with no significant bradycardia or high-grade arrhythmias. Echocardiogram shows preserved ejection fraction with no significant valvular heart disease. Echo: 1. Moderate biatrial enlargement, normal left ventricular size, mild concentric left ventricular hypertrophy, estimated ejection fraction 55% with no regional wall motion abnormality, diastolic parameters are inconclusive. 2. Trace aortic, mild mitral and tricuspid regurgitation. Calculated right ventricular systolic pressure 32 mmHg. 3. Trivial pericardial effusion noted. 4. Inferior vena cava is poorly visualized. Electronically signed by : Nael Rios MD 09/15/2021 19:35:30 Exam Vital signs and Labs for Last 24 Hours: Temp Pulse Resp BP Pulse Ox 97.6 F 63 16 154/80 H 96 09/16/21 08:54 09/16/21 08:54 09/16/21 08:54 09/16/21 08:54 09/16/21 08:54 Laboratory Results - last 24 hr 09/15/21 10:00: SARS-CoV-2 (PCR) Not detected, Influenza A Untype (PCR) Not detected, Influenza Type B (PCR) Not detected 09/15/21 10:05: WBC 8.8, RBC 4.63, Hgb 14.6, Hct 44.9, MCV 96.9 H, MCH 31.5 H, MCHC 32.5, RDW 13.2, Plt Count 273, MPV 8.1, Neut % (Auto) 77.7, Lymph % (Auto) 13.1, [place] % (Auto) 6.9, Eos % (Auto) 1.4, Baso % (Auto) 0.9, Neut # (Auto) 6.9, Lymph # (Auto) 1.2, [place] # (Auto) 0.6, Eos # (Auto) 0.1, Baso # (Auto) 0.1 09/15/21 10:05: Sodium 136, Potassium 3.7, Chloride 103, Carbon Dioxide 28, Anion Gap 8.7, BUN 13, Creatinine 1.10, Estimated Creat Clear 65, Estimated GFR 64, Est GFR ( Amer) 78, Glucose 145 H, Calcium 8.9, Phosphorus 3.3, Magnesium 1.5 L, Total Bilirubin 1.2, AST 36, ALT 26, Alkaline Phosphatase 66, Troponin I < 0.01, Total Protein 6.2 L, Albumin 3.6, Globulin 2.6, Albumin/Globulin Ratio 1.4 09/15/21 13:14: Troponin I < 0.01 09/16/21 05:38: WBC 7.3, RBC 4.62, Hgb 14.7, Hct 44.9, MCV 97.3 H, MCH 31.9 H, MCHC 32.8, RDW 13.6, Plt Count 252, MPV 7.9, Neut % (Auto) 61.5, Lymph % (Auto) 23.2, [place] % (Auto) 11.9 H, Eos % (Auto) 2.2, Baso % (Auto) 1.1, Neut # (Auto) 4.5, Lymph # (Auto) 1.7, [place] # (Auto) 0.9, Eos # (Auto) 0.2, Baso # (Auto) 0.1 09/16/21 05:38: Sodium 136, Potassium 3.9, Chloride 100, Carbon Dioxide 31 H, Anion Gap 8.9, BUN 17 D, Creatinine 1.20, Estimated Creat Clear 64, Estimated GFR 58 L, Est GFR ( Amer) 70, Glucose 98 D, Calcium 8.6 I & O for Last 24 hours: Intake & Output 09/13/21 09/14/21 09/15/21 09/16/21 11:59 11:59 11:59 11:59 Intake Total 240 / 240 Output Total 100 / 100 Balance 140 / 140 Weight 190 lb 202 lb 14.4 oz - Constitutional no acute distress - *Routine Respiratory Exam Present: CTA bilaterally - *Routine Cardiovascular Exam Present: RRR - *Routine Extremities Exam Absent: cyanosis, clubbing, edema - *Routine Neurological Exam Present: alert, oriented X3 Progress Note: A&P (1) Syncope Status: Acute (2) Atrial fibrillation, chronic Status: Chronic (3) Coronary artery disease Status: Chronic (4) Hyperlipidemia Status: Chronic (5) Hypertension Status: Chronic (6) History of placement of stent in LAD coronary artery Status: Acute Assessment and Plan for All Diagnoses:: 1. Syncope with nausea preceding it, likely vasovagal in origin. No significant arrhythmias noted on telemetry overnight with echocardiogram showing preserved ejection fraction and troponins normal x2. Due to technical limitations were unable to obtain Lexiscan Myoview today. Patient is stable for discharge home with outpatient scheduling of Lexiscan Myoview in early follow-up within the next week. 2. History of coronary
--- NOTE | 2021-09-16 09:00 | HMH.HPDC ---
General - General Admission date:: 09/15/21 Discharge date: 09/16/21 *Admission Date: 09/15/21 *Chief complaint: syncope *History of present illness: 81-year-old male presented to the emergency department after syncopal episode. Pt states he was sitting at home when he felt quite nauseous. States he went into the kitchen where he had a witnessed syncopal episode, witnessed by his . Was not confused afterward and it lasted around 1 min. By the time EMS arrived, he felt much better. Pt states he does not remember passing out. Pt states he has had episodes like this before, often after working outside, in the heat, dehydrated. No fevers, chills, nausea, vomiting, headache, chest pain, palpitations, shortness of breath. He has a hx of atrial fibrillation, takes Eliquis. Pt admitted for monitoring and cardiology consult [facility] History I have reviewed the patient's past medical history: Yes Medical History: Reports:: Atrial Fibrillation, Coronary Artery Disease, Gastroesophageal Reflux Disease(GERD), Hyperlipidemia, Hypertension Denies:: Cancer, Diabetes Mellitus Type 1, Diabetes Mellitus Type 2, Internal Pacemaker, MRSA, Seizures *Have you ever received a pneumonia vaccine?: Yes *Have you received a flu vaccine this season?: Yes Other Medical History: Reports: Cataracts Other Surgeries: Yes: Angioplasty, Cardiac Catheterization, Cholecystectomy, Colonoscopy, Coronary Stent, Hernia Repair (x2: umbilical & ingiuinal). No: Pacemaker Amputation: No Fractures: Yes (R wrist) - *Social History Smoking Status: Never smoker Alcohol Intake: never Alcohol Intake Frequency:: a few times a month Substance Use Type: denies use *Occupational Status:: retired Housing: house Household Members: spouse *Travel in the last 8 weeks: Inside the [facility] Family Hx:: Unable to obtain Review of Systems - Review of Systems Review of systems:: pertinent systems reviewed and negative unless documented below - Constitutional Denies body ache(s) - Eyes Denies blurry vision - ENT Denies abnormal hearing - *Cardiovascular Denies chest pain - *Respiratory Denies chest congestion - *Gastrointestinal Denies abdominal pain - *Genitourinary Denies urinary hesitancy - *Musculoskeletal Denies abnormal walking - Integumentary/Breasts Denies hair loss - *Neurologic Reports fainting, Denies headache(s), Denies seizure-like activity, Denies dizziness - Psychiatric Denies abnormal sleep pattern - Endocrine Denies excessive sweating - Hematologic/Lymphatic Denies easy bruising - Allergic/Immunologic Denies itchy eyes Exam Vital signs and Labs for Last 24 Hours: Temp Pulse Resp BP Pulse Ox 97.6 F 63 16 154/80 H 96 09/16/21 08:54 09/16/21 08:54 09/16/21 08:54 09/16/21 08:54 09/16/21 08:54 Laboratory Results - last 24 hr 09/15/21 10:00: SARS-CoV-2 (PCR) Not detected, Influenza A Untype (PCR) Not detected, Influenza Type B (PCR) Not detected 09/15/21 10:05: WBC 8.8, RBC 4.63, Hgb 14.6, Hct 44.9, MCV 96.9 H, MCH 31.5 H, MCHC 32.5, RDW 13.2, Plt Count 273, MPV 8.1, Neut % (Auto) 77.7, Lymph % (Auto) 13.1, [place] % (Auto) 6.9, Eos % (Auto) 1.4, Baso % (Auto) 0.9, Neut # (Auto) 6.9, Lymph # (Auto) 1.2, [place] # (Auto) 0.6, Eos # (Auto) 0.1, Baso # (Auto) 0.1 09/15/21 10:05: Sodium 136, Potassium 3.7, Chloride 103, Carbon Dioxide 28, Anion Gap 8.7, BUN 13, Creatinine 1.10, Estimated Creat Clear 65, Estimated GFR 64, Est GFR ( Amer) 78, Glucose 145 H, Calcium 8.9, Phosphorus 3.3, Magnesium 1.5 L, Total Bilirubin 1.2, AST 36, ALT 26, Alkaline Phosphatase 66, Troponin I < 0.01, Total Protein 6.2 L, Albumin 3.6, Globulin 2.6, Albumin/Globulin Ratio 1.4 09/15/21 13:14: Troponin I < 0.01 09/16/21 05:38: WBC 7.3, RBC 4.62, Hgb 14.7, Hct 44.9, MCV 97.3 H, MCH 31.9 H, MCHC 32.8, RDW 13.6, Plt Count 252, MPV 7.9, Neut % (Auto) 61.5, Lymph % (Auto) 23.2, [place] % (Auto) 11.9 H, Eos % (Auto) 2.2, Baso % (Auto) 1.1, Neut # (Auto) 4
--- NOTE | 2021-09-17 15:01 | CARE MANAGER ---
Contacted patient related to follow up from hospital discharge. Patient states that he is doing well and had no new prescriptions. He denies any questions or concerns.
== END 2021-09-16 10:19 | disposition home or self-care (01) ==
LOC: ER 12:48 → 2ND 15:37
PROVIDERS: Admitting Provider Emergency Medicine; Emergency Provider Emergency Medicine; PCP Internal Medicine; Visit Provider Emergency Medicine
DX: R55 Syncope and collapse (principal); I48.20 Chronic atrial fibrillation, unspecified; I10 Essential (primary) hypertension; K21.9 Gastro-esophageal reflux disease without esophagitis; Z79.01 Long term (current) use of anticoagulants; Z95.5 Presence of coronary angioplasty implant and graft; I25.10 Atherosclerotic heart disease of native coronary artery without angina pectoris; Z79.899 Other long term (current) drug therapy; E78.5 Hyperlipidemia, unspecified; Z20.822 Contact with and (suspected) exposure to COVID-19
CPT/HCPCS: G0378; 36415; 71045; 80048; 80053; 83735; 84100; 84484; 85025; 93005; 93306; 99285; C9803; U0003; U0005

== ENCOUNTER → 2021-09-16 10:26 | Outpatient (CLI) | payer MEDICARE, SELFPAY ==
--- NOTE | 2021-09-16 | CA_ITS ---
APPROVED REPORT Exam: Pharmacologic Technologist: Caitlin Bella, Ht: 6 ft 0 in Wt: 190 lbs BSA: 2.08 m2 HR: 70 bpm BP: 151/88 mmHg Rhythm: AFIB,ICRBBB Indications: Syncopal Episode Medical History Medical History: HTN Medications: Lisinopril,,,,, Atorvastatin,,,,, CetIRIZINE,,,,, Apixaban,,,,, TriaMterene/HCTZ,,,,, Allergies: SIMVASTATIN Cardiac Risk Factors: HTN, FHX of CAD Stress Test Details Test: LEXISCAN HR Resting HR: 60 bpm Max Heart Rate (APMHR): 140.440955 bpm Max HR Achieved: 99 bpm Target HR (85% APMHR): 119.370989 bpm % of APMHR: 70.71 Recovery HR: 60 bpm HR response to stress: 62 BP Resting BP: 151.0/88.0 mmHg Max BP: 151.0/88.0 mmHg Recovery BP: 110.0/62.0 mmHg ECG Resting ECG: AFIB,ICRBBB Clinical Exercise duration: 04:00 min Highest Stage Achieved: Exercise capacity: 1.0 METs Stress ECG Conclusion DURING INFUSION PATIENT FELT LIGHTHEADED,NEAR SYNCOPE,(ALLEVIATED WITH TRENDELENBURG). NO CP. FREQUENT ABERRANTLY CONDUCTED BEATS VS. PVC'S,BRADYCARDIA. NO SIGNIFICANT ST-T CHANGES. LEXISCAN INDUCED HYPOTENSION AND BRADYCARDIA. NO ISCHEMIC EKG CHANGES. MYOVIEW IMAGES REPORTED SEPARATELY. Test Summary RECOVERY 04:00 . . 55 . 115/ 79 . . REST 02:50 . . 60 . 151/ 88 . . Stage 1 . . . . . . . Myoview Injected Stage 1 01:00 . . 77 . . . . Stage 2 01:00 . . 78 . . . . Stage 3 01:00 . . 44 . 117/ 70 . . Stage 4 01:00 . . 45 . 93/ 46 . Stop exercise at 04:00 RECOVERY 01:00 . . 60 . 96/ 50 . . RECOVERY 02:00 . . 65 . 96/ 50 . . RECOVERY 03:00 . . 77 . 110/ 62 . . RECOVERY 04:00 . . 55 . 115/ 79 . . RECOVERY 05:00 . . 62 . 121/ 81 . . RECOVERY 06:00 . . 68 . 121/ 81 . . RECOVERY 07:00 . . 69 . 121/ 81 . . RECOVERY 08:00 . . 59 . 126/ 77 . . RECOVERY 09:00 . . 66 . 129/ 81 . . RECOVERY 09:24 . . 70 . 129/ 81 . . Electronically signed by : Nael Rios MD 09/16/2021 19:24:40
--- NOTE | 2021-09-16 10:27 | NM_ITS ---
APPROVED REPORT Exam: Nuclear Stress Test Indication: syncope Stress Tech: Hue Ramsay NM Tech:Gilda Hawk ELIZABETH RT(R)(N) Ht: 6 ft 0 in Wt: 190 lbs HR: 70 bpm BP: 151/88 mmHg BSA: 2.08 m2 TID: 70 Procedure: Patient received a 0.4 mg of intravenous Lexiscan, resting heart rate 70 bpm, resting blood pressure 151/88 mmHg, with Lexiscan maximum heart rate achived was 79 bpm which is Less than 85 % of the maximum predicted heart rate and blood pressure was 117/70 mmHg. With Lexiscan, patient denied any complaint of chest pain. Electrocardiogram Resting electrocardiogram showed sinus rhythm, with Lexiscan there is less than 1.[address] segment depression from the baseline EKG. The EKG portion of the Lexiscan is nondiagnostic. Cardiac Stress and Resting SPECT Images: Cardiac Stress and Resting SPECT images were obtained using technetium 99m Myoview 31.7 mCi stress and 10.76 mCi at rest. Gated SPECT analysis of segmental wall motion and calculation of the ejection fraction also done, prone images were also obtained. Cardiac stress and rest SPECT images show uniform myocardial activity without segmental perfusion abnormality, computer derived ejection fraction is 48% with no regional wall motion abnormality, right ventricle is normal size and contractility. Conclusion: 1. The EKG portion of the Lexiscan is nondiagnostic. 2. No scintigraphic evidence of reversible ischemia seen, computer derived ejection fraction 48% with no regional wall motion abnormality, right ventricle is normal size and contractility 3. Normal Lexiscan Myoview study. Electronically signed by : Nael Rios MD 09/18/2021 13:07:29
== END ==
PROVIDERS: PCP Internal Medicine; Visit Provider Physician Assistant
DX: E78.5 Hyperlipidemia, unspecified (principal); I10 Essential (primary) hypertension; I25.10 Atherosclerotic heart disease of native coronary artery without angina pectoris; I48.20 Chronic atrial fibrillation, unspecified; Z95.5 Presence of coronary angioplasty implant and graft
CPT/HCPCS: 78452; 93017; A9502; J2785

== ENCOUNTER → 2021-10-07 13:25 | Outpatient (CLI) | payer MEDICARE, SELFPAY ==
[2021-10-07 14:48] LABS: Basophils # 0.2 K/mm3 (0-0.2); Basophils % 2.5 % (0.1-2.0); Eosinophils # 0.3 K/mm3 (0.0-0.4); Eosinophils % 3.5 % (0.1-12.0); Hemoglobin 14.9 g/dL (14.1-18.0); Lymphocytes # 1.3 K/mm3 (0.7-4.5); Lymphocytes % 17.6 % (10-50); Mean Corpuscular HGB Conc 31.8 g/dL (31.8-35.4); Mean Corpuscular Volume 100.6 fl (80-94); Mean Platelet Volume 8.4 fl (7.4-10.4); Monocytes # 0.5 K/mm3 (0.1-1.0); Monocytes % 7.1 % (1.7-9.3); Neutrophils # 5.1 K/mm3 (1.8-7.8); Neutrophils % 69.4 % (37.0-80.0); Platelet Count 342 K/mm3 (142-424); Red Blood Count 4.67 M/mm3 (4.60-6.20); Red Cell Distribution Width 13.7 % (11.5-17.5); White Blood Count 7.4 K/mm3 (4.8-10.8)
[2021-10-07 15:31] LABS: Alanine Aminotransferase 23 U/L (12-78); Albumin Level 3.7 g/dl (3.5-5.0); Albumin/Globulin Ratio 1.4 (1.1-1.8); Alkaline Phosphatase 62 U/L (38-126); Anion Gap 10.3 mEq/L (5-15); Aspartate Amino Transferase 32 U/L (17-59); Bilirubin,Total 1.1 mg/dl (0.2-1.3); Blood Urea Nitrogen 20 mg/dl (9-20); Carbon Dioxide 29 mmol/L (22.0-30.0); Chloride 103 mmol/L (98-107); Chol/HDL Ratio 4.4 (1-3.5); Cholesterol 133 mg/dl (140-200); Estimated Glomerular Filt Rate 64 ml/min (>60); GFR (African American) 78 ML/MIN (>60); Globulin 2.6 g/dL (1.3-3.2); Glucose 97 mg/dl (74-100); HDL Cholesterol 30 mg/dl (40-60); Potassium 4.3 mmoL/L (3.5-5.1); Sodium 138 mmol/L (136-145); Total Protein,Serum 6.3 g/dl (6.3-8.2); Triglycerides 74 mg/dl (30-150); VLDL Cholesterol 15 mg/dL (0-40)
[2021-10-07 15:41] LABS: Direct LDL Cholesterol 76.69 mg/dL (100-129)
[2021-10-07 15:59] LABS: Prostate Specific Ag Screen 0.6 ng/ml (0.0-4.0)
== END ==
PROVIDERS: PCP Internal Medicine; Visit Provider Internal Medicine
DX: I25.10 Atherosclerotic heart disease of native coronary artery without angina pectoris (principal); I10 Essential (primary) hypertension; I48.20 Chronic atrial fibrillation, unspecified; E78.5 Hyperlipidemia, unspecified; N40.1 Benign prostatic hyperplasia with lower urinary tract symptoms; Z12.5 Encounter for screening for malignant neoplasm of prostate
CPT/HCPCS: 80053; 80061; 85025; G0103

== ENCOUNTER → 2022-04-09 13:16 | Outpatient (CLI) | payer MEDICARE, SELFPAY ==
[2022-04-09 18:42] LABS: Alanine Aminotransferase 24 U/L (12-78); Albumin Level 3.8 g/dl (3.5-5.0); Albumin/Globulin Ratio 1.5 (1.1-1.8); Alkaline Phosphatase 96 U/L (38-126); Anion Gap 10.2 mEq/L (5-15); Aspartate Amino Transferase 44 U/L (17-59); Bilirubin,Total 1.2 mg/dl (0.2-1.3); Blood Urea Nitrogen 20 mg/dl (9-20); Calcium 8.8 mg/dl (8.4-10.2); Carbon Dioxide 29 mmol/L (22.0-30.0); Chloride 102 mmol/L (98-107); Chol/HDL Ratio 3.9 (1-3.5); Cholesterol 112 mg/dl (140-200); Estimated Glomerular Filt Rate 53 ml/min (>60); GFR (African American) 64 ML/MIN (>60); Globulin 2.6 g/dL (1.3-3.2); Glucose 74 mg/dl (74-100); HDL Cholesterol 29 mg/dl (40-60); Potassium 4.2 mmoL/L (3.5-5.1); Sodium 137 mmol/L (136-145); Total Protein,Serum 6.4 g/dl (6.3-8.2); Triglycerides 57 mg/dl (30-150); Uric Acid 6.6 mg/dl (3.5-8.5); VLDL Cholesterol 11 mg/dL (0-40)
[2022-04-09 18:52] LABS: Direct LDL Cholesterol 67.65 mg/dL (100-129)
== END ==
PROVIDERS: PCP Internal Medicine; Visit Provider Internal Medicine
DX: I48.20 Chronic atrial fibrillation, unspecified (principal); I25.10 Atherosclerotic heart disease of native coronary artery without angina pectoris; I10 Essential (primary) hypertension; E78.5 Hyperlipidemia, unspecified; M10.9 Gout, unspecified
CPT/HCPCS: 80053; 80061; 84550

== ENCOUNTER → 2022-10-29 13:03 | Outpatient (CLI) | payer MEDICARE, SELFPAY ==
[2022-10-29 14:51] LABS: Basophils % 0.2 % (0.1-2.0); Chol/HDL Ratio 3.3 (1-3.5); Cholesterol 105 mg/dl (140-200); Eosinophils # 0.3 K/mm3 (0.0-0.4); Eosinophils % 4.5 % (0.1-12.0); HDL Cholesterol 32 mg/dl (40-60); Hematocrit 45.5 % (42.0-52.0); Hemoglobin 14.6 g/dL (14.1-18.0); Lymphocytes # 1.4 K/mm3 (0.7-4.5); Lymphocytes % 21.9 % (10-50); Mean Corpuscular HGB Conc 32.1 g/dL (31.8-35.4); Mean Corpuscular Hemoglobin 31.2 pg (27.0-31.2); Mean Corpuscular Volume 97.3 fl (80-94); Mean Platelet Volume 8.8 fl (7.4-10.4); Monocytes # 0.5 K/mm3 (0.1-1.0); Monocytes % 7.6 % (1.7-9.3); Neutrophils # 4.1 K/mm3 (1.8-7.8); Neutrophils % 65.7 % (37.0-80.0); Platelet Count 263 K/mm3 (142-424); Red Blood Count 4.68 M/mm3 (4.60-6.20); Red Cell Distribution Width 13.3 % (11.5-17.5); Triglycerides 65 mg/dl (30-150); VLDL Cholesterol 13 mg/dL (0-40); White Blood Count 6.2 K/mm3 (4.8-10.8)
[2022-10-29 15:02] LABS: Direct LDL Cholesterol 60.83 mg/dL (100-129)
[2022-10-29 15:22] LABS: Prostate Specific Ag Screen 0.6 ng/ml (0.0-4.0)
[2022-11-01 13:02] LABS: Alanine Aminotransferase 22 U/L (12-78); Albumin Level 3.8 g/dl (3.5-5.0); Albumin/Globulin Ratio 1.5 (1.1-1.8); Alkaline Phosphatase 67 U/L (38-126); Anion Gap 13.4 mEq/L (5-15); Aspartate Amino Transferase 29 U/L (17-59); Bilirubin,Total 0.9 mg/dl (0.2-1.3); Blood Urea Nitrogen 14 mg/dl (9-20); Calcium 8.6 mg/dl (8.4-10.2); Carbon Dioxide 31 mmol/L (22.0-30.0); Chloride 100 mmol/L (98-107); Estimated Glomerular Filt Rate 64 ml/min (>60); GFR (African American) 78 ML/MIN (>60); Globulin 2.6 g/dL (1.3-3.2); Glucose 84 mg/dl (74-100); Potassium 4.4 mmoL/L (3.5-5.1); Sodium 140 mmol/L (136-145); Total Protein,Serum 6.4 g/dl (6.3-8.2)
== END ==
PROVIDERS: PCP Internal Medicine; Visit Provider Internal Medicine
DX: I10 Essential (primary) hypertension (principal); I25.10 Atherosclerotic heart disease of native coronary artery without angina pectoris; I48.91 Unspecified atrial fibrillation; E78.5 Hyperlipidemia, unspecified; K21.9 Gastro-esophageal reflux disease without esophagitis; Z12.5 Encounter for screening for malignant neoplasm of prostate
CPT/HCPCS: 80053; 80061; 85025; G0103

== ENCOUNTER → 2023-02-03 11:26 | Outpatient (CLI) | payer MEDICARE, SELFPAY ==
[2023-02-03 12:51] LABS: Alanine Aminotransferase 26 U/L (12-78); Albumin Level 4.1 g/dl (3.5-5.0); Alkaline Phosphatase 66 U/L (38-126); Anion Gap 12.5 mEq/L (5-15); Aspartate Amino Transferase 29 U/L (17-59); Bilirubin,Direct 0.1 mg/dl (0.0-0.4); Bilirubin,Indirect 0.8 mg/dL (0.0-0.9); Bilirubin,Total 0.9 mg/dl (0.2-1.3); Bilirubin,Unconjugated 0.8 mg/dL (0.0-1.1); Blood Urea Nitrogen 21 mg/dl (9-20); Calcium 9.3 mg/dl (8.4-10.2); Carbon Dioxide 29 mmol/L (22.0-30.0); Chloride 102 mmol/L (98-107); Estimated Glomerular Filt Rate 58 ml/min (>60); GFR (African American) 70 ML/MIN (>60); Glucose 99 mg/dl (74-100); Magnesium 1.8 mg/dl (1.6-2.3); Potassium 4.5 mmoL/L (3.5-5.1); Sodium 139 mmol/L (136-145); Total Protein,Serum 6.8 g/dl (6.3-8.2)
[2023-02-03 12:52] LABS: Basophils % 0.4 % (0.1-2.0); Eosinophils # 0.3 K/mm3 (0.0-0.4); Hematocrit 48.9 % (42.0-52.0); Hemoglobin 15.2 g/dL (14.1-18.0); Lymphocytes # 1.4 K/mm3 (0.7-4.5); Lymphocytes % 20.3 % (10-50); Mean Corpuscular HGB Conc 31.2 g/dL (31.8-35.4); Mean Corpuscular Hemoglobin 31.2 pg (27.0-31.2); Mean Corpuscular Volume 99.9 fl (80-94); Mean Platelet Volume 8.5 fl (7.4-10.4); Monocytes # 0.4 K/mm3 (0.1-1.0); Monocytes % 6.1 % (1.7-9.3); Neutrophils # 4.9 K/mm3 (1.8-7.8); Neutrophils % 69.2 % (37.0-80.0); Platelet Count 232 K/mm3 (142-424); Red Blood Count 4.89 M/mm3 (4.60-6.20); Red Cell Distribution Width 13.9 % (11.5-17.5)
[2023-02-03 13:06] LABS: Free T4 (Free Thyroxine) 0.82 ng/dl (0.78-2.19)
[2023-02-03 13:22] LABS: Thyroid Stimulating Hormone 2.32 uIU/mL (0.465-4.68)
== END ==
PROVIDERS: PCP Internal Medicine; Visit Provider Nurse Practitioner
DX: E78.5 Hyperlipidemia, unspecified (principal); I10 Essential (primary) hypertension; I25.10 Atherosclerotic heart disease of native coronary artery without angina pectoris; I48.91 Unspecified atrial fibrillation; R53.83 Other fatigue
CPT/HCPCS: 36415; 80048; 80076; 83735; 84439; 84443; 85025

== ENCOUNTER → 2023-04-27 12:40 | Outpatient (CLI) | payer MEDICARE, SELFPAY ==
[2023-04-27 13:51] LABS: Chloride 102 mmol/L (98-107); Potassium 4.2 mmoL/L (3.5-5.1); Sodium 140 mmol/L (136-145)
[2023-04-27 13:53] LABS: Alanine Aminotransferase 40 U/L (12-78); Aspartate Amino Transferase 39 U/L (17-59); Blood Urea Nitrogen 20 mg/dl (9-20); Estimated Glomerular Filt Rate 64 ml/min (>60); GFR (African American) 78 ML/MIN (>60)
[2023-04-27 13:54] LABS: Albumin/Globulin Ratio 1.5 (1.1-1.8); Alkaline Phosphatase 58 U/L (38-126); Anion Gap 10.2 mEq/L (5-15); Bilirubin,Total 0.7 mg/dl (0.2-1.3); Calcium 8.6 mg/dl (8.4-10.2); Carbon Dioxide 32 mmol/L (22.0-30.0); Chol/HDL Ratio 3.6 (1-3.5); Cholesterol 107 mg/dl (140-200); Globulin 2.6 g/dL (1.3-3.2); Glucose 82 mg/dl (74-100); HDL Cholesterol 30 mg/dl (40-60); Total Protein,Serum 6.6 g/dl (6.3-8.2); Triglycerides 40 mg/dl (30-150); VLDL Cholesterol 8 mg/dL (0-40)
[2023-04-27 14:05] LABS: Direct LDL Cholesterol 71.57 mg/dL (100-129)
== END ==
PROVIDERS: PCP Internal Medicine; Visit Provider Internal Medicine
DX: I11.9 Hypertensive heart disease without heart failure (principal); I25.10 Atherosclerotic heart disease of native coronary artery without angina pectoris; I48.20 Chronic atrial fibrillation, unspecified; G47.33 Obstructive sleep apnea (adult) (pediatric); E78.5 Hyperlipidemia, unspecified; N40.1 Benign prostatic hyperplasia with lower urinary tract symptoms; Z95.9 Presence of cardiac and vascular implant and graft, unspecified
CPT/HCPCS: 80053; 80061

== ENCOUNTER 2023-11-08 09:10 | Outpatient (CLI) | payer MEDICARE, SELFPAY ==
[2023-11-08 13:59] LABS: Basophils # 0.1 K/mm3 (0-0.2); Basophils % 0.7 % (0.1-2.0); Eosinophils # 0.3 K/mm3 (0.0-0.4); Eosinophils % 3.8 % (0.1-12.0); Hematocrit 43.1 % (42.0-52.0); Hemoglobin 14.2 g/dL (14.1-18.0); Lymphocytes # 1.4 K/mm3 (0.7-4.5); Lymphocytes % 19.1 % (10-50); Mean Corpuscular HGB Conc 32.8 g/dL (31.8-35.4); Mean Corpuscular Hemoglobin 33.5 pg (27.0-31.2); Mean Corpuscular Volume 102.1 fl (80-94); Mean Platelet Volume 9.8 fl (7.4-10.4); Monocytes # 0.5 K/mm3 (0.1-1.0); Monocytes % 7.2 % (1.7-9.3); Neutrophils # 5.1 K/mm3 (1.8-7.8); Neutrophils % 69.2 % (37.0-80.0); Platelet Count 234 K/mm3 (142-424); Red Blood Count 4.22 M/mm3 (4.60-6.20); Red Cell Distribution Width 14.3 % (11.5-17.5); White Blood Count 7.3 K/mm3 (4.8-10.8)
[2023-11-08 14:02] LABS: Alanine Aminotransferase 20 U/L (12-78); Albumin Level 3.7 g/dl (3.5-5.0); Albumin/Globulin Ratio 1.5 (1.1-1.8); Alkaline Phosphatase 59 U/L (38-126); Anion Gap 7.2 mEq/L (5-15); Aspartate Amino Transferase 27 U/L (17-59); Bilirubin,Total 0.8 mg/dl (0.2-1.3); Blood Urea Nitrogen 19 mg/dl (9-20); Calcium 9.2 mg/dl (8.4-10.2); Carbon Dioxide 31 mmol/L (22.0-30.0); Chloride 105 mmol/L (98-107); Chol/HDL Ratio 3.5 (1-3.5); Cholesterol 114 mg/dl (140-200); Estimated Glomerular Filt Rate 58 ml/min (>60); GFR (African American) 70 ML/MIN (>60); Globulin 2.5 g/dL (1.3-3.2); Glucose 88 mg/dl (74-100); HDL Cholesterol 33 mg/dl (40-60); Potassium 4.2 mmoL/L (3.5-5.1); Sodium 139 mmol/L (136-145); Total Protein,Serum 6.2 g/dl (6.3-8.2); Triglycerides 62 mg/dl (30-150); VLDL Cholesterol 12 mg/dL (0-40)
[2023-11-08 14:13] LABS: Direct LDL Cholesterol 61.94 mg/dL (100-129)
[2023-11-08 14:31] LABS: Prostate Specific Ag Screen 0.6 ng/ml (0.0-4.0)
== END 2023-11-08 23:59 | disposition home or self-care (01) ==
LOC: LAB.DROPOF 11-11 09:12
PROVIDERS: PCP Internal Medicine; Visit Provider Internal Medicine
DX: E78.5 Hyperlipidemia, unspecified (principal); I10 Essential (primary) hypertension; Z12.5 Encounter for screening for malignant neoplasm of prostate
CPT/HCPCS: 80053; 80061; 85025; G0103

== ENCOUNTER 2023-12-06 08:36 | Outpatient (CLI) | payer MEDICARE, SELFPAY ==
[2023-12-07 14:04] LABS: Vitamin B12 442 pg/mL (239-931)
== END 2023-12-06 23:59 | disposition home or self-care (01) ==
LOC: LAB.DROPOF 12-14 08:37
PROVIDERS: PCP Internal Medicine; Visit Provider Internal Medicine
DX: D75.89 Other specified diseases of blood and blood-forming organs (principal)
CPT/HCPCS: 82607

== ENCOUNTER 2024-08-21 11:40 | Outpatient (CLI) | payer MEDICARE, SELFPAY ==
[2024-08-21 19:12] LABS: Alanine Aminotransferase 23 U/L (12-78); Albumin Level 4.1 g/dl (3.5-5.0); Albumin/Globulin Ratio 1.4 (1.1-1.8); Alkaline Phosphatase 75 U/L (38-126); Anion Gap 13.1 mEq/L (5-15); Aspartate Amino Transferase 30 U/L (17-59); Bilirubin,Total 1.4 mg/dl (0.2-1.3); Blood Urea Nitrogen 16 mg/dl (9-20); Calcium 8.8 mg/dl (8.4-10.2); Carbon Dioxide 29 mmol/L (22.0-30.0); Chloride 100 mmol/L (98-107); Chol/HDL Ratio 4.1 (1-3.5); Cholesterol 127 mg/dl (140-200); Estimated Glomerular Filt Rate 64 ml/min (>60); GFR (African American) 77 ML/MIN (>60); Glucose 81 mg/dl (74-100); HDL Cholesterol 31 mg/dl (40-60); Potassium 4.1 mmoL/L (3.5-5.1); Sodium 138 mmol/L (136-145); Total Protein,Serum 7.1 g/dl (6.3-8.2); Triglycerides 88 mg/dl (30-150); VLDL Cholesterol 18 mg/dL (0-40)
== END 2024-08-21 23:59 | disposition home or self-care (01) ==
LOC: LAB.DROPOF 08-22 11:05
PROVIDERS: PCP Internal Medicine; Visit Provider Internal Medicine
DX: E78.5 Hyperlipidemia, unspecified (principal); I11.9 Hypertensive heart disease without heart failure; I25.10 Atherosclerotic heart disease of native coronary artery without angina pectoris
CPT/HCPCS: 80053; 80061

== ENCOUNTER 2024-09-12 10:24 | Day surgery (SDC) | payer MEDICARE, SELFPAY ==
[2024-09-05 15:31] VITALS: BMI 25.7
[2024-09-12] VITALS (7 sets, daily range): BP systolic 103–130; BP diastolic 60–84; PULSE 53–67; RESP 16–18; TEMP 36.2–36.3; O2SAT 97–98
[2024-09-12] MEDS: LACTATED RINGERS 1000ML 1,000 ML 50 ML IV (11:09)
--- NOTE | 2024-09-12 11:30 | EXP.ANES.CKL ---
[facility] Disclaimer: The information contained in this section may have been updated after the patient was seen, as this information can be updated by other users. Medical History History of left heart catheterization (LHC) GERD (gastroesophageal reflux disease) Atrial fibrillation SOB (shortness of breath) Bleeding nose Hyperlipidemia Hypertension Coronary artery disease Surgical History History of colonoscopy History of cholecystectomy H/O hernia repair Family History Father Colon cancer Social History Smoking Status: Never smoker alcohol intake: current alcohol intake frequency: a few times a month substance use type: denies use current occupational status: retired Travel in the last 8 weeks?: None household members: spouse housing: house current occupation: [employer], master srgt caffeine: Yes Have you lived/traveled outside US in past 30 days?: No Contact w/someone who lives/traveled outside US past 30 days?: No Exposure to someone with infectious disease in past 14 days?: No Do you have a fever (greater than 100.4 F or 38 C)?: No Have you tested positive for COVID-19?: No Exposed to someone with COVID-19 in past 14 days?: No Do you have a sore throat?: No Do you have a cough?: No Do you have any weakness?: No Do you have any diarrhea?: No Are you experiencing any unusual bleeding?: No Do you have any muscle aches/pain?: No Do you have any abdominal pain?: No Are you experiencing loss of taste or smell?: No [facility] Anesthesia Checklist Patient Identification Patient Identification: Arm Band Structural Data Admitted From: Home Planned Operative Procedure/s: Colonoscopy Consent for Planned Operative Procedure(s) Verified: Yes Verified Documents: Surgical Consent and History and Physical NPO Status Verified Time NPO: 00:00 Additional verifications Anesthesia Reactions: No Airway Assessment Mallampati Score:: Class II C-Spine Mobility Assessed: Yes TMJ Mobility Assessed: Yes Dentition: Good Dentition Neurological Assessment Level of Consciousness: Awake, Alert and Appropriate Anesthesia Plan Anesthesia Risk discussed: Yes Anesthesia Plan: Verified ASA Class: III Anesthesia Type: MAC
--- NOTE | 2024-09-12 11:37 | EXP.HP ---
History of Present Illness *Admission Date: 09/12/24 *Reason for visit:: Personal history of colon polyps and family history of colon cancer *History of present illness: Mr. Fletcher is an 84-year-old gentleman who is here for surveillance colonoscopy secondary to a personal history of adenomatous colon polyps and family history of colon cancer. The examination is deemed medically necessary for surveillance colonoscopy. The patient has been seen, interviewed and examined prior to the procedure by both myself and the anesthesia provider. [facility] Disclaimer: The information contained in this section may have been updated after the patient was seen, as this information can be updated by other users. Medical History (Updated 09/12/24 @ 11:39 by Keo Davey II, MD) History of left heart catheterization (LHC) GERD (gastroesophageal reflux disease) Atrial fibrillation SOB (shortness of breath) Bleeding nose Hyperlipidemia Hypertension Coronary artery disease Surgical History History of colonoscopy History of cholecystectomy H/O hernia repair Family History Father Colon cancer Social History Smoking Status: Never smoker alcohol intake: current alcohol intake frequency: a few times a month substance use type: denies use current occupational status: retired Travel in the last 8 weeks?: None household members: spouse housing: house current occupation: [employer], master srgt caffeine: Yes Have you lived/traveled outside US in past 30 days?: No Contact w/someone who lives/traveled outside US past 30 days?: No Exposure to someone with infectious disease in past 14 days?: No Do you have a fever (greater than 100.4 F or 38 C)?: No Have you tested positive for COVID-19?: No Exposed to someone with COVID-19 in past 14 days?: No Do you have a sore throat?: No Do you have a cough?: No Do you have any weakness?: No Do you have any diarrhea?: No Are you experiencing any unusual bleeding?: No Do you have any muscle aches/pain?: No Do you have any abdominal pain?: No Are you experiencing loss of taste or smell?: No Other Medical History Have you received the Flu Vaccine for this season: No Have you received the Pneumonia Vaccine: Yes Review of Systems Review of Systems Review of systems (narrative): Negative *Cardiovascular Comments: Negative *Gastrointestinal Comments: Negative *Genitourinary Comments: Negative *Musculoskeletal Comments: Negative *Neurologic Comments: Negative Meds Home Medications and Allergies Home Medications ?Medication ?Instructions ?Recorded ?Confirmed ?Type apixaban 5 mg tablet (Eliquis) See Rx Instructions .Route 11/21/23 09/12/24 Rx .COMPLEX #180 tabs atorvastatin 20 mg tablet See Rx Instructions .Route 11/21/23 09/12/24 Rx .COMPLEX #90 tabs triamterene 37.5 See Rx Instructions .Route 03/05/24 09/12/24 Rx mg-hydrochlorothiazide 25 mg tablet .COMPLEX #45 tabs lisinopril 20 mg tablet 20 mg PO DAILY #90 tabs 08/27/24 09/12/24 Rx sodium,potassium,mag sulfates 17.5 See Rx Instructions PO .COMPLEX 08/29/24 09/12/24 Rx gram-3.13 gram-1.6 gram oral soln #354 mL (Suprep Bowel Prep Kit) vit A 7,160 unit-vit C 113 mg-vit 1 tab PO DAILY 09/05/24 09/12/24 History E 100 pjog-prnh-ggekwj tablet New Prescriptions to Start Prescriptions: Allergies Allergy/AdvReac Type Severity Reaction Status Date / Time No Known Allergies Allergy Verified 09/05/24 15:28 Exam Data for Last 24 hours Vital signs and Labs for Last 24 Hours: Temp Pulse Resp BP Pulse Ox O2 Del Method O2 Flow Rate 97.1 F L 67 18 130/84 98 Nasal Cannula 5 09/12/24 11:09 09/12/24 11:09/12/24 11:09 09/12/24 11:09 09/12/24 11:09/12/24 11:31 09/12/24 11:31 *Routine HEENT Exam Head: Present normocephalic Eye: Present EOMI and PERRL ENT: Present mucous membranes moist *Routine Neck Exam Neck: Present supple *Routine Respiratory Exam Respiratory: Present CTA bilaterally *Routine Cardiovascular Exam Cardiovascular: Present RRR *Routine Abdominal Exam Abdominal: Present soft and normoactive bowel sounds; Absent tenderness *Routine Rectal Exam Rectal:: deferred *Routine Genitalia Exam Genitalia:: deferred *Routine Extremities Exam Extremities: Absent cyanosis, clubbing or edema *Routine Skin Exam Skin: Present warm; Absent rash *Routine Neurological Exam Neurological: Present alert and oriented X3 Assessment and Plan *Assessment and plan (1) Personal history of adenomatous and serrated colon polyps: Status: Acute Category: Medical Code(s): Z86.0101 - Personal history of adenomatous and serrated colon polyps (2) Family history of colon cancer in father: Status: Acute Category: Medical Code(s): Z80.0 - Family history of malignant neoplasm of digestive organs Plan A/P: 1. Personal history of adenomatous colon polyps and family history of colon cancer is the preprocedural diagnosis. The patient will be anesthetized/sedated using MAC sedation. The patient has been seen and examined. Cardiac and lung assessment prior to the examination is stable. Proceed with planned surveillance colonoscopy.
--- NOTE | 2024-09-12 11:39 | HMH.PROCNOTE ---
[facility] Procedure Note Date: 09/12/24 Time: 12:01 Procedure Note:: Colonoscopy Procedure Report: Colonoscopy with cold snare polypectomy Endoscopist: Keo Davey II, MD Referring physician: Rober Horn MD Date of Procedure: September 12, 2024 Equipment: Olympus 190 variable stiffness pediatric colonoscope Sedation: MAC sedation Indication: Mr. Fletcher is an 84-year-old gentleman who is here for follow-up surveillance colonoscopy secondary to a personal history of adenomatous colon polyps and family history of colon cancer. His father had colon cancer at the age of 65 which was advanced. His colonoscopy 20 years ago revealed 3 polyps which were removed. His colonoscopy in April 2009 revealed a single polyp (tubular adenoma) which was removed. His colonoscopy in June 2014 revealed 2 diminutive polyps (tubular adenomas x 2) which were removed. His last colonoscopy and June 2019 revealed a single polyp (tubular adenoma) which was removed. He reports no abdominal pain, weight loss, change in his bowel habits or rectal bleeding. Procedure: Prior to the procedure, a history and physical exam was performed, and patient's medications and allergies were reviewed. The risks, benefits and alternatives of the sedation and procedure were discussed with the patient. All questions were answered and informed consent was obtained. The patient was brought to the procedure room. Patient identification and proposed procedure were verified by the physician and the nurse. The patient was placed in a left lateral decubitus position and the scope was passed under direct vision. Throughout the procedure, the patient's blood pressure, pulse, and oxygen saturations were monitored continuously. The colonoscopy was accomplished without difficulty. The patient tolerated the procedure well. Findings: On digital rectal examination there was normal rectal tone. There were no external hemorrhoids. The colonoscope was introduced through the anal canal to the rectum and advanced to the cecum. The ileocecal valve and appendiceal orifice were identified. The scope was advanced a short distance into the ileum which appeared grossly normal. The scope was then withdrawn into the colon. The cecum, ascending and transverse colon and mucosa were grossly normal. There was a diminutive 3 to 4 mm polyp in the transverse colon removed via cold snare polypectomy. There were scattered extensive diverticuli throughout the descending and sigmoid colon (LEFT colon). The rectum itself was normal. Upon retroflexion within the rectum there were grade 2 internal hemorrhoids. The preparation was good throughout with [place] Preparation Score of 8 out of 9. The cecal time was 13 minutes. Impression: 1. Diminutive transverse colon polyp (3 to 4 mm) 2. Extensive left-sided diverticulosis 3. Grade 2 internal hemorrhoids Plan: I will follow-up the polyp histology. I do not feel that the patient will require any further preventive/surveillance colonoscopy. I would encourage psyllium fiber supplementation on a maintenance basis.
== END 2024-09-12 12:58 | disposition home or self-care (01) ==
PROVIDERS: PCP Internal Medicine; Visit Provider Internal Medicine Gastroenterology
PROC: 0DJD8ZZ Inspection of Lower Intestinal Tract, Via Natural or Artificial Opening Endoscopic (ICD-10-PCS; CPT 45378; principal; 2024-09-12 12:00)
DX: Z12.11 Encounter for screening for malignant neoplasm of colon (principal); Z86.0101 Personal history of adenomatous and serrated colon polyps; Z80.0 Family history of malignant neoplasm of digestive organs; D12.3 Benign neoplasm of transverse colon; K57.30 Diverticulosis of large intestine without perforation or abscess without bleeding; K64.1 Second degree hemorrhoids
CPT/HCPCS: 45385; J7120

== ENCOUNTER 2025-02-21 12:14 | Outpatient (CLI) | payer MEDICARE, SELFPAY ==
[2025-02-21 17:39] LABS: Hematocrit 42.2 % (42.0-52.0); Hemoglobin 13.7 g/dL (14.1-18.0); Immature Granulocytes % 0.1 %; Mean Corpuscular HGB Conc 32.5 g/dL (31.8-35.4); Mean Corpuscular Hemoglobin 32.5 pg (27.0-31.2); Mean Corpuscular Volume 100.0 fl (80-94); Nucleated Red Blood Cells % 0 %; Platelet Count 234 K/mm3 (142-424); Red Blood Count 4.22 M/mm3 (4.60-6.20); Red Cell Distribution Width-SD 52.0 fL; White Blood Count 7.5 K/mm3 (4.8-10.8)
[2025-02-21 18:01] LABS: Alanine Aminotransferase 25 U/L (12-78); Albumin Level 3.9 g/dl (3.5-5.0); Albumin/Globulin Ratio 1.7 (1.1-1.8); Alkaline Phosphatase 81 U/L (38-126); Anion Gap 12.4 mEq/L (5-15); Aspartate Amino Transferase 29 U/L (17-59); Bilirubin,Total 1.7 mg/dl (0.2-1.3); Blood Urea Nitrogen 19 mg/dl (9-20); Calcium 8.9 mg/dl (8.4-10.2); Carbon Dioxide 30 mmol/L (22.0-30.0); Chloride 101 mmol/L (98-107); Cholesterol 108 mg/dl (140-200); Creatinine,Serum 1.10 mg/dl (0.66-1.25); Estimated Glomerular Filt Rate 64 ml/min (>60); GFR (African American) 77 ML/MIN (>60); Globulin 2.3 g/dL (1.3-3.2); Glucose 81 mg/dl (74-100); HDL Cholesterol 32 mg/dl (40-60); Potassium 4.4 mmoL/L (3.5-5.1); Sodium 139 mmol/L (136-145); Total Protein,Serum 6.2 g/dl (6.3-8.2); Triglycerides 65 mg/dl (30-150)
== END 2025-02-21 23:59 ==
LOC: LAB.DROPOF 02-25 12:15
PROVIDERS: PCP Internal Medicine; Visit Provider Internal Medicine
DX: E78.5 Hyperlipidemia, unspecified (principal); I10 Essential (primary) hypertension; I25.10 Atherosclerotic heart disease of native coronary artery without angina pectoris; I48.20 Chronic atrial fibrillation, unspecified; Z12.5 Encounter for screening for malignant neoplasm of prostate
CPT/HCPCS: 80053; 80061; 85025; G0103

== ENCOUNTER 2025-03-01 13:32 | Outpatient (CLI) | payer MEDICARE, SELFPAY ==
--- OUTSIDE RECORDS SUMMARY | 2025-03-01 13:36 | XMS_ITS | Clinical Summary ---
Author Organization Healthcare Address [address] [place] [address] Care Team Providers Care University Services Program Associate Name Role Phone Rober Horn MD Primary Care Provider [phone] Medications triamterene-hyd rochlorothiazid e (Maxzide-25) 37.5-25 MG tablet 5 Active triamcinolone (Kenalog) 0.1 % cream Apply 1 application topically 1 (one) time each day. Active triamcinolone (Kenalog) 0.1 % ointment APPLY A SMALL AMOUNT TO AFFECTED AREA TWICE DAILY -- FOR EXTERNAL USE ONLY-- 1 Active lisinopril 10 MG tablet 4 Active psyllium (Metamucil) 58.6 % packet Take by mouth 1 (one) time each day. Active doxycycline (Vibra-Tabs) 100 MG tablet TAKE ONE TABLET BY MOUTH TWICE DAILY FOR FOURTEEN DAYS -- FINISH ALL MEDICINE -- 1 Active atorvastatin (Lipitor) 20 MG tablet 1 Active apixaban (Eliquis) 5 MG tablet 5 Active cetirizine (ZyrTEC) 10 MG tablet Take 10 mg by mouth 1 (one) time each day. Active Encounters Date Type Department Care Team Description 02/25/2025 Abstract [facility] Audiology [address] [place] [id number] Cesia Aparicio, AuD from Last 3 Months Family History Medical History Relation Name Comments Colon cancer Father Hypertension Father Relation Name Status Comments Father Social History Tobacco Use Types Packs/Day Years Used Date Smoking Tobacco: Never Smokeless Tobacco: Never Tobacco Cessation:Counseling Given: Not Answered Alcohol Use Standard Drinks/Week Comments Never 0 (1 standard drink = 0.6 oz pure alcohol) Alcoholic Drinks/day: Minimum alcohol consumption Sex and Gender Information Value Date Recorded Sex Assigned at Not on file Legal Sex Male 6:43 PM EDT Gender Identity Not on file Sexual Orientation Not on file Last Filed Vital Signs Vital Sign Reading Time Taken Comments Blood Pressure 167/92 01/12/2024 1:28 PM EDT Pulse 70 01/12/2024 1:28 PM EDT Temperature - - Respiratory Rate - - Oxygen Saturation - - Inhaled Oxygen Concentration - - Weight 90.7 kg (200 lb) 01/12/2024 1:28 PM EDT Height 182.9 cm (6') 01/12/2024 1:28 PM EDT Body Mass Index 27.12 01/12/2024 1:28 PM EDT Plan of Treatment Health Maintenance Due Date Last Done Comments [facility]-Depression Screening 1941 [facility]-Medicare Annual Wellness (AWV) 1940 [facility]-Infant/Child/Adol SDOH Screenings 1941 [facility]- SDOH Screenings 1959 [facility]-Adult SDOH Screenings 1959 [facility]-DTaP,Tdap,and Td Vaccines (1 - Tdap) 1960 [facility]-Zoster Vaccines (1 of 2) 1991 [facility]-Pneumococcal Vaccine: 50+ Years (2 of 2 - PCV20 or PCV21) 02/25/2018 02/25/2017 [id number] Vaccine (4 - 2024- season) 2025 01/14/2021, 07/16/2020, 06/18/2020 [facility]-Influenza Vaccine (#1) 2025 [facility]-RSV Vaccine: 60+ Years or Completed 04/05/2023 [facility]-Obesity Intervention Completed 025, 01/12/2024, 01/12/2024, Additional history exists HPV Vaccines Aged Out No longer eligi ble based on patient's age to complete this topic [facility]-HIB Vaccines Aged Out No longer e ligible based on patient's age to complete this topic [facility]-Hepatitis A Vaccines Aged Out No longer eligible based on patient's age to complete this topic [facility]-IPV Vaccines Aged Out No longer e ligible based on patient's age to complete this topic [facility]-Rotavirus Vaccines Aged Out No lo nger eligible based on patient's age to complete this topic Insurance [place] [id number] MEDICARE [facility] Care Teams University Services Program Associate Relationship Specialty Start Date End Date Rober Horn MD [address] [place] [address] PCP - General 09/19/20
--- OUTSIDE RECORDS SUMMARY | 2025-03-01 13:36 | XMS_ITS | Clinical Summary ---
Author Organization [facility] Address [address] [place] [address] Care Team Providers Care Wheel Loader Operator Name Role Phone Rober Horn MD Primary Care Provider [phone] Allergies Active Allergy Reactions Criticality Noted Date Comments Amlodipine 11/04/2015 In the summertime, causes edema Atenolol 11/04/2015 Ineffective and caused fatigue Propafenone 11/04/2015 [place] bad Verapamil 11/04/2015 Ineffective for PVC's Medications cetirizine (ZyrTEC) 10 MG tablet Take 10 mg by mouth daily Active Psyllium (METAMUCIL) 48.57 % powder Take by mouth Daily. Active triamcinolone (KENALOG) 0.1 % cream Apply 1 application topically Daily. Active lisinopril (PRINIVIL,ZESTR IL) 20 MG tablet Take 1 tablet by mouth daily 90 tablet 3 7 Active ELIQUIS 5 MG tablet tablet TAKE 1 TABLET BY MOUTH TWO TIMES DAILY 180 tablet 2 7 Active simvastatin (ZOCOR) 40 MG tablet Take 1 tablet by mouth Every Night. Need lab work- order mailed 90 tablet 8 Active triamterene-hyd rochlorothiazid e (MAXZIDE-25) 37.5-25 MG per tablet Take 1 tablet by mouth Daily. Need lab work- order mailed 90 tablet 8 Active Active Problems Problem Noted Date Diagnosed Date Coronary artery disease 11/04/2015 Overview (11/04/2015): a. Abnormal nuclear perfusion study, 10/22/2010, revealing inferior wall ischemia with an LVEF of 57%. b. Cardiac catheterization, 11/27/2010: Occluded right coronary with collateral flow, noncritical disease of the LAD, and circumflex. Normal LV function. Atrial fibrillation 11/04/2015 Overview (11/04/2015): a. Brief runs of SVT on Holter monitor, 2007. b. Echocardiogram, 03/14/2008: Mild concentric LVH, normal LV, trace mitral regurgitation. c. Cardiolite GXT, 03/14/2008: Exercise duration of 13 minutes and 12 seconds with no evidence of inducible ischemia. LVEF 75% d. Repeat Holter monitor for ectopy: There were 8,250 PVCs with 510 PACs. No runs of ventricular tachycardia, 109 bigeminal cycles, and 7-runs of brief supraventricular tachycardia, the longest of which was 3 beats. e. Atrial fibrillation noted with bronchitis, July 2014, Eliquis initiated. f. External cardioversion to sinus rhythm, 10/28/2014, with recurrent atrial fibrillation with repeat cardioversion. g. CHADS-VASc score = 2. Neurocardiogenic syncope 11/04/2015 Overview (11/04/2015): a. Strongly positive tilt table test, March 2003. b. Recurrent syncopal episodes, 01/06/2008. Brain tumor 11/04/2015 Overview (11/04/2015): a. Initial discovery, July 2011. b. Initial surgery, August 2011. c. Recent hammer and anvil titanium implant, January 2012 Hypertension 11/04/2015 Dyslipidemia 11/04/2015 MAHSA on CPAP 11/04/2015 Erectile dysfunction 11/04/2015 Raynaud phenomenon 11/04/2015 Family History Medical History Relation Name Comments Hypertension Father Relation Name Status Comments Father Mother Social History Tobacco Use Types Packs/Day Years Used Date Smoking Tobacco: Never Smokeless Tobacco: Never Tobacco Cessation:Counseling Given: No Alcohol Use Standard Drinks/Week Comments Yes 3 (1 standard drink = 0.6 oz pur e alcohol) socially Abuse Screen Answer Date Recorded Unsafe at Home or Work/School Not on file Feels Threatened by Someone? Not on file 01/2023 Does Anyone Keep You from Co ntacting Others or Doint Things Outside the Home? Not on file 02/14/2023 Physical Sign of Abuse Present Not on file 1 Housing Stability Answer Date Recorded Current Living Arrangements Not on file 01/2023 Potentially Unsafe Housing Conditions Not on callie e 02/14/2023 Family and Community Support Answer Raheem e Recorded Help with Day-to-Day Activities Not on file 02/14/2023 Lonely or Isolated Not on file 02/14/2023 Employment Answer Date Recorded Do you want help finding or keeping work or a kal b? Not on file 02/14/2023 Disabilities Answer Date Recorded Concentrating, Remembering, or Making Decisions Difficulty Not on file 02/14/2023 Doing Errands Independently Difficulty Not on fi le 02/14/2023 Education Answer Date Recorded Help with school or training? Not on file Preferred Language Not on file 02/14/2023 Sex and Gender Information Value Date Recorded Sex Assigned at Not on file Legal Sex Male 1:16 PM EDT Gender Identity Not on file Sexual Orientation Not on file Last Filed Vital Signs Vital Sign Reading Time Taken Comments Blood Pressure 110/64 12/15/2016 9:36 AM EDT Pulse 54 12/15/2016 9:36 AM EDT Temperature 36.6 C (97.8 F) 08/06/2014 10:45 AM EDT Respiratory Rate - - Oxygen Saturation 97% 08/06/2014 10:45 AM EDT Inhaled Oxygen Concentration - - Weight 104 kg (228 lb 3.2 oz) 12/15/2016 9:36 AM EDT Height 182.9 cm (6') 12/15/2016 9:36 AM EDT Body Mass Index 30.95 12/15/2016 9:36 AM EDT Plan of Treatment Health Maintenance Due Date Last Done Comments TDAP/TD VACCINES (1 - Tdap) 1960 COLOGUARD 1986 COLON CANCER SCREENING 5 YEAR SIGMOIDOSCOPY 1986 COLONOSCOPY 1986 [address] CANCER SCREENING 1986 CT COLONOGRAPHY 1986 FECAL OCCULT BLOOD TEST 1986 FIT Testing (1 year) 1986 Pneumococcal Vaccine 50+ (1 of 1 - PCV) 1991 ZOSTER VACCINE (1 of 2) 1991 RSV Vaccine - Adults (1 - 1-dose 75+ series) 7 ANNUAL PHYSICAL 08/13/2016 INFLUENZA VACCINE 12/07/2024 COVID-19 Vaccine ( - 2023- season) 2025 Insurance MEDICARE [employer] Care Teams Wheel Loader Operator Relationship Specialty Start Date End Date Rober Horn MD [address] [address] [place] [address] PCP - General 12/19/14
--- OUTSIDE RECORDS SUMMARY | 2025-03-01 13:36 | XMS_ITS | Encounter Summary ---
Author Organization Healthcare Address [address] [place] [address] Care Team Providers Care Licensed Esthetician Name Role Phone Rober Horn MD Primary Care Provider [phone] Encounter Details Date Type Department Care Team (Late st Contact Info) Description 02/25/2025 Abstract [facility] Audiology [address] [place] [address] Cesia Aparicio, AuD [address] [place] [address] Social History Tobacco Use Types Packs/Day Years Used Date Smoking Tobacco: Never Smokeless Tobacco: Never Alcohol Use Standard Drinks/Week Comments Never 0 (1 standard drink = 0.6 oz pure alcohol) Alcoholic Drinks/day: Minimum alcohol consumption Sex and Gender Information Value Date Recorded Sex Assigned at Not on file Legal Sex Male 6:43 PM EDT Gender Identity Not on file Sexual Orientation Not on file documented as of this encounter Plan of Treatment Not on file documented as of this encounter Visit Diagnoses Not on filedocumented in this encounter Additional Health Concerns Assessment Noted Time A Body Mass Index follow-up plan has been documented for the patient 07/16/2024 9:12 AM EDT documented as of this encounter Care Teams Licensed Esthetician Relationship Specialty Start Date End Date Rober Horn MD [address] [place] [address] PCP - General 09/19/20 documented as of this encounter
--- NOTE | 2025-03-01 13:45 | CA_ITS ---
APPROVED REPORT EXAM: Comprehensive 2D, Doppler, and color-flow Echocardiogram [employer] Ha[employer] Driver: Mayuri Schuster RT(R) Ht: 6 ft 0 in Wt: 185lbs BSA: 2.06 BP: 13/98 mmHg Indications: CAD, AFIB, HTN 2D Dimensions LVEF ([facility]) 50.60 % M: 52 - 72 LV Volume 90.90 mL M: 62 - 150 LV Volume Index 44.1 mL/m2 M: 34 - 74 LA Volume 92.40 mL LA Volume Index 44.85 mL/m2 (M/F) 16-34 EF AP4 52.10 % EF AP2 49.2 % EF BP 50.6 % GL Strain -14.3 % M-Mode Dimensions RVDd 3.86 cm (0.9-2.6) LA Diam 5.20 cm (1.9-4.0) LVDd 4.71 cm (3.5-5.7) LVDs 3.78 cm (3.5-5.7) IVSd 0.76 cm (0.6-1.1) PWd 0.64 cm (0.6-1.1) EF (Teich) 40.50% FS 19.70% EDV (Teich) 102.90 mL TAPSE 2.11 (<1.7) ESV (Teich) 61.20 mL Aortic Valve AI PHT 697.00 ms Tricuspid Valve TR P. Velocity 211.00 cm/s Left Ventricle The left ventricle is normal size. Left ventricular systolic function is normal. The left ventricular ejection fraction is within the normal range. There is increased left ventricular wall thickness. There is normal LV segmental wall motion. The left ventricular diastolic function is indeterminate. LVEF is 55% Right Ventricle The right ventricle is mildly dilated. The right ventricular systolic function is normal. Atria Left atrium is severely dilated. Right atrium is severely dilated. There is no color Doppler evidence of interatrial shunt. Aortic Valve The aortic valve is mildly thickened. There is no hemodynamically significant aortic valvular stenosis. Mild aortic regurgitation is present. Mitral Valve The mitral valve is mildly thickened. No evidence of mitral valve stenosis. Moderate mitral regurgitation is present. The MR jet is eccentric (posteriorly directed) and may be underestimated on TTE. Tricuspid Valve The tricuspid valve leaflets are thin and pliable. Moderate tricuspid regurgitation. RVSP is 20-25 mmHg. Pulmonic Valve The pulmonary valve is grossly normal in structure. Trace pulmonic valve regurgitation is present. Great Vessels The aortic root is normal in size. IVC is normal in size and collapses >50% with inspiration. Pericardium There is no pericardial effusion. Other Information Study Quality: Fair Conclusion Normal biventricular systolic function. Mild RV dilation. Severe biatrial dilation. Moderate MR (The MR jet is eccentric (posteriorly directed) and may be underestimated on TTE). Moderate TR. Mild AI. Electronically signed by : Aure Cruz MD 03/09/2025 16:11:05
== END 2025-03-01 23:59 | disposition home or self-care (01) ==
LOC: RT 13:33
PROVIDERS: PCP Internal Medicine; Visit Provider Physician Assistant
DX: I08.3 Combined rheumatic disorders of mitral, aortic and tricuspid valves (principal); I11.9 Hypertensive heart disease without heart failure; I25.10 Atherosclerotic heart disease of native coronary artery without angina pectoris; I48.91 Unspecified atrial fibrillation
CPT/HCPCS: 93306